=== PATIENT | female | born 1955 | race Caucasian/White ===

== ENCOUNTER 2016-10-24 12:52 | Inpatient (IN) | payer OTHER ==
[2016-10-24 15:17] LABS: BASOPHIL 0.3 % (0-2.0); EOSINOPHIL 0.1 % (0-4.5); MCH 30.4 pg (25.7-33.7); MCHC 33.6 g/dl (32.0-36.0); MEAN CELL VOLUME 90.3 fl (80-96); MEAN PLT VOLUME 7.4 fl (7.5-11.1); NEUTROPHILS 79.9 % (42.8-82.8); PLATELET COUNT 303 K/MM3 (134-434); RDW 12.7 % (11.6-15.6); WHITE BLOOD COUNT 10.9 K/mm3 (4.0-10.0)
[2016-10-24 15:18] LABS: URINE APPEARANCE CLEAR; URINE BILIRUBIN NEGATIVE (NEGATIVE); URINE BLOOD NEGATIVE (NEGATIVE); URINE COLOR YELLOW; URINE GLUCOSE (UA) NEGATIVE (NEGATIVE); URINE KETONE NEGATIVE (NEGATIVE); URINE LEUK ESTERASE NEGATIVE (NEGATIVE); URINE NITRITE NEGATIVE (NEGATIVE); URINE PROTEIN NEGATIVE (NEGATIVE); URINE UROBILINOGEN NEGATIVE mg/dL (0.2-1.0)
[2016-10-24 15:29] LABS: INR 1.11 (0.82-1.09); PROTHROMBIN TIME (PATIENT) 12.2 SEC (9.98-11.88)
[2016-10-24 15:32] LABS: ACTIVATED PTT 36.4 SECONDS (26.9-34.4)
[2016-10-24 15:41] LABS: ALBUMIN 3.8 g/dl (3.4-5.0); ANION GAP 6 (8-16); BILIRUBIN,TOTAL 0.3 mg/dL (0.2-1.0); CALCIUM 9.1 mg/dL (8.5-10.1); CO2 30 mmol/L (21-32); CREATININE 0.4 mg/dL (0.55-1.02); GLUCOSE,RANDOM 91 mg/dL (74-106); SGOT/AST 13 U/L (15-37); SGPT/ALT 23 U/L (12-78); TOT PROT 7.3 g/dl (6.4-8.2)
[2016-10-24 15:42] LABS: ALK PHOS 64 U/L (45-117)
--- NOTE | 2016-10-24 16:55 | PDOC ---
History of Present Illness <Carlton Teixeira - Last Filed: 10/24/16 21:19> - General History Source: Patient Exam Limitations: No Limitations - History of Present Illness Initial Comments: 10/24/16 17:24 Chief complaint: Abdominal pain generalized History of present illness: Patient is a 61-year-old female with a history of GERD, hypertension, diabetes, small bowel obstruction approximately 15 years ago. Patient reports that she was awaken this morning around 5 AM with mid abdominal discomfort that quickly started to radiate to entire abdomen with a cramping like sensation. Patient denies any fever, or chills. Patient reports that her last bowel movement was today to moderate sized brown formed with no rectal bleeding or blood noted on stool. Patient denies any urinary symptoms. Patient denies any back pain. Patient denies any difficulty breathing. Patient reports that her appetite has been very good. 10/24/16 17:28 Medical h/o gerd, htn, diabetes, small bowel obstruction 15 years ago surgical h/o: thyroidectomy, cholecystectomy, appendectomy, hystertomy, oophorectomy, b/l hip replacement GI: Dr Yobany mckay seen 5 years ago PCP: Dr. Adrianna Nuñez 10/24/16 19:18 Timing/Duration: getting worse Severity: severe (diffuse ) Associated Symptoms: reports: nausea/vomiting (nausea slight ). denies: chest pain, cough, diaphoresis, fever/chills, headaches, malaise, seizure, shortness of breath, syncope, weakness <Marian Cheng - Last Filed: 10/25/16 12:08> - General Chief Complaint: Pain Stated Complaint: ABD PAIN Time Seen by Provider: 10/24/16 16:51 Past History <Carlton Teixeira - Last Filed: 10/24/16 21:19> - Past Medical History Diabetes: Yes GI Disorders: Yes (gerd) HTN: Yes Suicide Attempt (Hx): No Thyroid Disease: Yes - Surgical History Abdominal Surgery: Yes Appendectomy: Yes Cholecystectomy: Yes - Psycho/Social/Smoking Cessation Hx Anxiety: No Suicidal Ideation: No Smoking Status: No Smoking History: Never smoked Number of Cigarettes Smoked Daily: 0 Hx Alcohol Use: Yes (SOCIAL) Drug/Substance Use Hx: No Substance Use Type: None <Marian Cheng - Last Filed: 10/25/16 12:08> - Past Medical History Allergies/Adverse Reactions: Allergies Allergy/AdvReac Type Severity Reaction Status Date / Time No Known Allergies Allergy Verified 10/24/16 12:58 Home Medications: Ambulatory Orders Levothyroxine [Synthroid -] 100 mcg PO DAILY 10/24/16 Tramadol HCl 50 mg PO DAILY PRN 10/24/16 Valsartan [Diovan] 80 mg PO DAILY 10/24/16 Review of Systems - Review of Systems Able to Perform ROS?: Yes Constitutional: No: Symptoms Reported HEENTM: No: Symptoms Reported Respiratory: No: Symptoms reported Cardiac (ROS): No: Symptoms Reported ABD/GI: Yes: Nausea (slight today ), Abdominal cramping (diffuse), Other (mid epigastric discomfort starting at 5 am started to radiate diffusely with cramping generalized abdominal pain). No: Abdominal Distended, Abd. Pain w/ defecation, Blood Streaked Bowels, Constipated, Diarrhea, Difficulty Swallowing , Poor Appetite, Poor Fluid Intake, Rectal Bleeding, Vomiting, Indigestion, Tarry Stools : No: Symptoms Reported Musculoskeletal: No: Symptoms Reported Integumentary: No: Symptoms Reported Neurological: No: Symptoms reported <Marian Cheng - Last Filed: 10/25/16 12:08> *Physical Exam - Vital Signs Last Vital Signs Temp Pulse Resp BP Pulse Ox 97.3 F L 57 L 16 153/79 99 10/24/16 17:59 10/24/16 17:59 10/24/16 17:59 10/24/16 17:59 10/24/16 17:59 <Carlton Teixeira - Last Filed: 10/24/16 21:19> - Vital Signs Last Vital Signs Temp Pulse Resp BP Pulse Ox 98.8 F 75 20 152/98 100 10/24/16 12:55 10/24/16 12:55 10/24/16 12:55 10/24/16 12:55 10/24/16 12:55 - Physical Exam General Appearance: Yes: Appropriately Dressed Respiratory/Chest: positive: Lungs Clear, Normal Breath Sounds. negative: Chest Tender, Respiratory Distress Cardiovascular: positive: Regular Rhythm, Regular Rate, S1, S2 Gastrointestinal/Abdominal: positive: Normal Bowel Sounds, Tender (diffusely greater left lower quadrant), Soft, Tenderness. negative: Organomegaly, Increased Bowel Sounds, Decreased BS, Distended, Guarding, Rebound, Hepatomegaly , Spleenomegaly Musculoskeletal: negative: CVA Tenderness, CVA Tenderness (R), CVA Tenderness (L ) Integumentary: positive: Normal Color Neurologic: positive: Alert, Normal Response, Finger to Nose <Marian Cheng - Last Filed: 10/25/16 12:08> ED Treatment Course - LABORATORY CBC & Chemistry Diagram: 10/24/16 15:00 10/24/16 15:00 - ADDITIONAL ORDERS Additional order review: Laboratory Results 10/24/16 10/24/16 10/24/16 17:38 15:00 15:00 INR PTT (Actin FS) Sodium 139 Potassium 4.3 Chloride 103 Carbon Dioxide 30 Anion Gap 6 L BUN 11 D Creatinine 0.4 L Creat Clearance w eGFR > 60 Random Glucose 91 Calcium 9.1 Total Bilirubin 0.3 D AST 13 L ALT 23 Alkaline Phosphatase 64 Creatine Kinase 143 Troponin I < 0.02 Total Protein 7.3 Albumin 3.8 Urine Color Urine Appearance Urine pH Ur Specific [place] Urine Protein Urine Glucose (UA) Urine Ketones Urine Blood Urine Nitrite Urine Bilirubin Urine Urobilinogen Ur Leukocyte Esterase Blood Type B POSITIVE Antibody Screen Negative 10/24/16 10/24/16 15:00 15:00 INR 1.11 PTT (Actin FS) 36.4 H Sodium Potassium Chloride Carbon Dioxide Anion Gap BUN Creatinine Creat Clearance w eGFR Random Glucose Calcium Total Bilirubin AST ALT Alkaline Phosphatase Creatine Kinase Troponin I Total Protein Albumin Urine Color Yellow Urine Appearance Clear Urine pH 5.0 D Ur Specific [place] 1.020 Urine Protein Negative Urine Glucose (UA) Negative Urine Ketones Negative Urine Blood Negative Urine Nitrite Negative Urine Bilirubin Negative Urine Urobilinogen Negative Ur Leukocyte Esterase Negative Blood Type Antibody Screen 10/24/16 15:00 RBC 3.91 MCV 90.3 MCHC 33.6 RDW 12.7 MPV 7.4 L Neutrophils % 79.9 D Lymphocytes % 16.3 D Monocytes % 3.4 L Eosinophils % 0.1 D Basophils % 0.3 - Medications Given in the ED: ED Medications Discontinued Medications Generic Name Dose Route Start Last Admin Trade Name Freq PRN Reason Stop Dose Admin Morphine Sulfate 2 mg 10/24/16 17:13 10/24/16 17:24 Morphine Injection - IVPUSH 10/24/16 17:14 2 mg ONCE ONE Administration <Carlton Teixeira - Last Filed: 10/24/16 21:19> - LABORATORY CBC & Chemistry Diagram: 10/25/16 06:00 10/25/16 06:00 - ADDITIONAL ORDERS Additional order review: Laboratory Results 10/24/16 10/24/16 10/24/16 15:00 15:00 15:00 INR 1.11 PTT (Actin FS) 36.4 H Sodium 139 Potassium 4.3 Chloride 103 Carbon Dioxide 30 Anion Gap 6 L BUN 11 D Creatinine 0.4 L Creat Clearance w eGFR > 60 Random Glucose 91 Calcium 9.1 Total Bilirubin 0.3 D AST 13 L ALT 23 Alkaline Phosphatase 64 Total Protein 7.3 Albumin 3.8 Urine Color Yellow Urine Appearance Clear Urine pH 5.0 D Urine Protein Negative Urine Glucose (UA) Negative Urine Ketones Negative Urine Blood Negative Urine Nitrite Negative Urine Bilirubin Negative Urine Urobilinogen Negative Ur Leukocyte Esterase Negative 10/24/16 15:00 RBC 3.91 MCV 90.3 MCHC 33.6 RDW 12.7 MPV 7.4 L Neutrophils % 79.9 D Lymphocytes % 16.3 D Monocytes % 3.4 L Eosinophils % 0.1 D Basophils % 0.3 <Marian Cheng - Last Filed: 10/25/16 12:08> Medical Decision Making - Medical Decision Making 10/24/16 17:28 Patient is a 61-year-old female with a history of GERD, hypertension, diabetes , small bowel obstruction approximately 15 years ago. Patient reports that she was awaken this morning around 5 AM with mid abdominal discomfort that quickly started to radiate to entire abdomen with a cramping like sensation. Patient denies any fever, or chills. Patient reports that her last bowel movement was today to moderate sized brown formed with no rectal bleeding or blood noted on stool. Patient denies any urinary symptoms. Patient denies any back pain. Patient denies any difficulty breathing. Patient reports that her appetite has been very good. Differential diagnosis will be r/o small bowel obstruction, diverticulitis Diffuse abdominal pain r/o SMALL BOWEL OBSTRUCTION/ DIVERTICULITIS PLAN: cbc with diff cmp u/a Pt/INR cardiac profile EKG reviewed by Dr. Chin CT abdomen with po and IV contrast morphine 2m IV push IV insert 10/24/16 17:29 10/24/16 17:33 10/24/16 17:33 Laboratory Tests 10/24/16 10/24/16 10/24/16 15:00 15:00 15:00 WBC 10.9 H D RBC 3.91 Hgb 11.9 Hct 35.3 MCV 90.3 MCH 30.4 MCHC 33.6 RDW 12.7 Plt Count 303 MPV 7.4 L Neutrophils % 79.9 D Lymphocytes % 16.3 D Monocytes % 3.4 L Eosinophils % 0.1 D Basophils % 0.3 INR 1.11 PTT (Actin FS) 36.4 H Sodium Potassium Chloride Carbon Dioxide Anion Gap BUN Creatinine Creat Clearance w eGFR Random Glucose Calcium Total Bilirubin ALT Alkaline Phosphatase Total Protein Albumin Urine Color Yellow Urine Appearance Clear Urine pH 5.0 D Urine Protein Negative Urine Glucose (UA) Negative Urine Ketones Negative Urine Blood Negative Urine Nitrite Negative Urine Bilirubin Negative Urine Urobilinogen Negative Ur Leukocyte Esterase Negative 10/24/16 15:00 WBC RBC Hgb Hct MCV MCH MCHC RDW Plt Count MPV Neutrophils % Lymphocytes % Monocytes % Eosinophils % Basophils % INR PTT (Actin FS) Sodium 139 Potassium 4.3 Chloride 103 Carbon Dioxide 30 Anion Gap 6 L BUN 11 D Creatinine 0.4 L Creat Clearance w eGFR > 60 Random Glucose 91 Calcium 9.1 Total Bilirubin 0.3 D ALT 23 Alkaline Phosphatase 64 Total Protein 7.3 Albumin 3.8 Urine Color Urine Appearance Urine pH Urine Protein Urine Glucose (UA) Urine Ketones Urine Blood Urine Nitrite Urine Bilirubin Urine Urobilinogen Ur Leukocyte Esterase 10/24/16 19:00 Laboratory Tests 10/24/16 17:38 Creatine Kinase 143 Troponin I < 0.02 10/24/16 19:20 pt. signed out to SPENSER Teixeira CT of abdomen pending 10/25/16 12:08 <Marian Cheng - Last Filed: 10/25/16 12:08> *DC/Admit/Observation/Transfer - Discharge Dispostion Admit: Yes <Carlton Teixeira - Last Filed: 10/24/16 21:19> <Marian Cheng - Last Filed: 10/25/16 12:08> Diagnosis at time of Disposition: SBO (small bowel obstruction) - Discharge Dispostion Condition at time of disposition: Fair
[2016-10-24] MEDS ORDERED: morphine CARPU-JECT 2 MG/1 ML DISP.SYRIN IVPUSH ONE (17:13)
[2016-10-24] MEDS ORDERED: morphine CARPU-JECT 2 MG/1 ML DISP.SYRIN ONE (17:19)
--- NOTE | 2016-10-24 17:53 | PDOC ---
*Physical Exam - Vital Signs Last Vital Signs Temp Pulse Resp BP Pulse Ox 98.8 F 75 20 152/98 100 10/24/16 12:55 10/24/16 12:55 10/24/16 12:55 10/24/16 12:55 10/24/16 12:55 ED Treatment Course - LABORATORY CBC & Chemistry Diagram: 10/25/16 06:00 10/25/16 06:00 - ADDITIONAL ORDERS Additional order review: Laboratory Results 10/24/16 10/24/16 10/24/16 15:00 15:00 15:00 INR PTT (Actin FS) Sodium 139 Potassium 4.3 Chloride 103 Carbon Dioxide 30 Anion Gap 6 L BUN 11 D Creatinine 0.4 L Creat Clearance w eGFR > 60 Random Glucose 91 Calcium 9.1 Total Bilirubin 0.3 D AST 13 L ALT 23 Alkaline Phosphatase 64 Total Protein 7.3 Albumin 3.8 Urine Color Yellow Urine Appearance Clear Urine pH 5.0 D Ur Specific [place] 1.020 Urine Protein Negative Urine Glucose (UA) Negative Urine Ketones Negative Urine Blood Negative Urine Nitrite Negative Urine Bilirubin Negative Urine Urobilinogen Negative Ur Leukocyte Esterase Negative Blood Type B POSITIVE Antibody Screen Negative 10/24/16 15:00 INR 1.11 PTT (Actin FS) 36.4 H Sodium Potassium Chloride Carbon Dioxide Anion Gap BUN Creatinine Creat Clearance w eGFR Random Glucose Calcium Total Bilirubin AST ALT Alkaline Phosphatase Total Protein Albumin Urine Color Urine Appearance Urine pH Ur Specific [place] Urine Protein Urine Glucose (UA) Urine Ketones Urine Blood Urine Nitrite Urine Bilirubin Urine Urobilinogen Ur Leukocyte Esterase Blood Type Antibody Screen 10/24/16 15:00 RBC 3.91 MCV 90.3 MCHC 33.6 RDW 12.7 MPV 7.4 L Neutrophils % 79.9 D Lymphocytes % 16.3 D Monocytes % 3.4 L Eosinophils % 0.1 D Basophils % 0.3 - Medications Given in the ED: ED Medications Discontinued Medications Generic Name Dose Route Start Last Admin Trade Name Freq PRN Reason Stop Dose Admin Morphine Sulfate 2 mg 10/24/16 17:13 10/24/16 17:24 Morphine Injection - IVPUSH 10/24/16 17:14 2 mg ONCE ONE Administration Medical Decision Making - Medical Decision Making 10/24/16 19:49 agree with SURVEILLANCE CAMERA TECHNICIAN's evaluation, assessment, and plan. 61 F with chronic abdominal pain, SBOs, presenting with acute on chronic abdominal pain. - CTAP - PO trial - Likely dispo home if CT negative Pt signed out to night team, pending CTAP and PO trial *DC/Admit/Observation/Transfer Diagnosis at time of Disposition: SBO (small bowel obstruction) - Discharge Dispostion Condition at time of disposition: Fair
[2016-10-24 18:02] LABS: CPK 143 IU/L (26-192); TROPONIN I < 0.02 ng/ml (0.00-0.05)
[2016-10-24] MEDS ORDERED: SODIUM CHLORIDE 1,000 ML IV SCH (21:30)
[2016-10-24] MEDS ORDERED: ONDANSETRON 4 MG/2 ML VIAL IVPUSH PRN (23:28)
[2016-10-24] MEDS ORDERED: METOPROLOL TARTRATE 5 MG/5 ML VIAL IVPUSH PRN (23:30)
[2016-10-24 23:48] VITALS: BMI 27.1
[2016-10-25] MEDS: SODIUM CHLORIDE 1,000 ML IV SCH (00:08)
[2016-10-25] MEDS: HYDROmorphone HCL CARPU-JECT 1 MG/1 ML DISP.SYRIN IVPUSH PRN ×2 (00:08→06:08)
--- NOTE | 2016-10-25 00:13 | HP ---
CHIEF COMPLAINT: Abdominal discomfort PCP:Dr. Adrianna Nuñez HISTORY OF PRESENT ILLNESS: 61 y.o. F with pmh of GERD, HTN, SBO 15 years prior presenting with abdominal discomfort. Patient woke up at 5 am with epigastric pain. She drank black coffee and then around 9 am, she felt her pain radiate across entire abdomen. Patient states the pain is crampy and constant. Patient felt it was the same as when she had a SBO 15 years ago. Her las BM was this morning x2. Her last meal was last night for dinner. She has a good appetite. She endorses chills, mild nausea. Denies fever, vomiting, diarrhea, constipation, changes in her bowels or bladder ER course was notable for: (1) WBC - 10.9, UA negative (2) Abd/pelvis CT- dilated loops of small bowel-- SBO (3) NG tube placement Recent Travel: denies PAST MEDICAL HISTORY: GERD, HTN, SBO 15 years prior PAST SURGICAL HISTORY: thyroidectomy, appendectomy, cholecystectomy, total hysterectomy with oopherectomy, and b/l hip replacements Social History: Smoking: denies Alcohol: occasional Drugs: denies Family History: HTN in mother Allergies No Known Allergies Allergy (Verified 10/24/16 12:58) HOME MEDICATIONS: Home Medications Medication Instructions Recorded Levothyroxine [Synthroid -] 100 mcg PO DAILY 10/24/16 Tramadol HCl 50 mg PO DAILY PRN 10/24/16 Valsartan [Diovan] 80 mg PO DAILY 10/24/16 REVIEW OF SYSTEMS CONSTITUTIONAL: Absent: fever, chills, diaphoresis, generalized weakness, malaise, loss of appetite, weight change HEENT: Absent: rhinorrhea, nasal congestion, throat pain, throat swelling, difficulty swallowing, mouth swelling, ear pain, eye pain, visual changes CARDIOVASCULAR: Absent: chest pain, syncope, palpitations, irregular heart rate, lightheadedness , peripheral edema RESPIRATORY: Absent: cough, shortness of breath, dyspnea with exertion, orthopnea, wheezing, stridor, hemoptysis GASTROINTESTINAL: Absent: abdominal pain, abdominal distension, nausea, vomiting, diarrhea, constipation, melena, hematochezia GENITOURINARY: Absent: dysuria, frequency, urgency, hesitancy, hematuria, flank pain, genital pain MUSCULOSKELETAL: Absent: myalgia, arthralgia, joint swelling, back pain, neck pain SKIN: Absent: rash, itching, pallor HEMATOLOGIC/IMMUNOLOGIC: Absent: easy bleeding, easy bruising, lymphadenopathy, frequent infections ENDOCRINE: Absent: unexplained weight gain, unexplained weight loss, heat intolerance, cold intolerance NEUROLOGIC: Absent: headache, focal weakness or paresthesias, dizziness, unsteady gait, seizure, mental status changes, bladder or bowel incontinence PSYCHIATRIC: Absent: anxiety, depression, suicidal or homicidal ideation, hallucinations. PHYSICAL EXAMINATION Vital Signs - 24 hr 10/24/16 23:14 Temperature 98.3 F Pulse Rate 55 L Respiratory 20 Rate Blood Pressure 151/74 O2 Sat by Pulse 96 Oximetry (%) GENERAL: Awake, alert, and fully oriented, in no acute distress. HEAD: Normal with no signs of trauma. EYES: Pupils equal, round and reactive to light, extraocular movements intact, sclera anicteric, conjunctiva clear. No lid lag. EARS, NOSE, THROAT: Ears normal, nares patent, oropharynx clear without exudates. Moist mucous membranes. NECK: Normal range of motion, supple without lymphadenopathy, JVD, or masses. LUNGS: Breath sounds equal, clear to auscultation bilaterally. No wheezes, and no crackles. No accessory muscle use. HEART: Regular rate and rhythm, normal S1 and S2 without murmur, rub or gallop. ABDOMEN: Soft, Diffuse tenderness to palpation and percussion, not distended, normoactive bowel sounds, no guarding, no rebound, no masses. No hepatomegaly or splenomegaly. MUSCULOSKELETAL: Normal range of motion at all joints. No bony deformities or tenderness. No CVA tenderness. UPPER EXTREMITIES: 2+ pulses, warm, well-perfused. No cyanosis. No clubbing. No peripheral edema. LOWER EXTREMITIES: 2+ pulses, warm, well-perfused. No calf tenderness. No peripheral edema. NEUROLOGICAL: Cranial nerves II-XII intact. Normal speech. Normal gait. PSYCHIATRIC: Cooperative. Good eye contact. Appropriate mood and affect. SKIN: Warm, dry, normal turgor, no rashes or lesions noted, normal capillary refill. Laboratory Results - last 24 hr 10/24/16 22:50 Lactic Acid 0.6 ASSESSMENT/PLAN: 61 year old F with pmh of GERD, HTN, SBO 15 yrs ago presented with diffuse abdominal pain admitted for SBO. #SBO -IVF @ 125 cc/hr NS -NPO -0.5 mg dilaudid Q6 hr PRN for pain control -Zofran 4 mg Q6 hr PRN -GI consulted, Dr. Haywood -NG tube in place to low intermittent suction #HTN -Lopressor 5 mg IVP q6h prn, maintain sbp <140 -Hold home medications #FEN/GI -IVF @ 125 cc/hr NS -wnl -NPO #ppx -DVT- SCD's Visit type - Emergency Visit Emergency Visit: Yes ED Registration Date: 10/24/16 Care time: The patient presented to the Emergency Department on the above date and was hospitalized for further evaluation of their emergent condition. - New Patient This patient is new to me today: Yes Date on this admission: 10/28/16 - Critical Care Critical Care patient: No
[2016-10-25 07:16] LABS: BASOPHIL 0.3 % (0-2.0); EOSINOPHIL 0.9 % (0-4.5); MCH 30.4 pg (25.7-33.7); MCHC 33.6 g/dl (32.0-36.0); MEAN CELL VOLUME 90.3 fl (80-96); MEAN PLT VOLUME 6.9 fl (7.5-11.1); PLATELET COUNT 283 K/MM3 (134-434); RDW 12.9 % (11.6-15.6); WHITE BLOOD COUNT 7.4 K/mm3 (4.0-10.0)
[2016-10-25 07:46] LABS: ALBUMIN 3.2 g/dl (3.4-5.0); ANION GAP 6 (8-16); BILIRUBIN,TOTAL 0.6 mg/dL (0.2-1.0); CALCIUM 8.2 mg/dL (8.5-10.1); CO2 30 mmol/L (21-32); CREATININE 0.4 mg/dL (0.55-1.02); GLUCOSE,RANDOM 91 mg/dL (74-106); SGOT/AST 13 U/L (15-37); SGPT/ALT 23 U/L (12-78); TOT PROT 6.4 g/dl (6.4-8.2)
[2016-10-25 07:47] LABS: ALK PHOS 69 U/L (45-117)
--- NOTE | 2016-10-25 08:08 | PN ---
Teaching Attending Note ATTENDING PHYSICIAN STATEMENT I saw and evaluated the patient. I reviewed the resident's note and discussed the case with the resident. I agree with the resident's findings and plan as documented. SUBJECTIVE: OBJECTIVE: ASSESSMENT AND PLAN:
[2016-10-25] MEDS ORDERED: METOPROLOL TARTRATE 5 MG/5 ML VIAL IVPB PRN (11:13)
--- NOTE | 2016-10-25 11:13 | EKG ---
Test Reason : Blood Pressure : / mmHG Vent. Rate : 061 BPM Atrial Rate : 061 BPM P-R Int : 192 ms QRS Dur : 098 ms QT Int : 424 ms P-R-T Axes : -06 -07 015 degrees QTc Int : 426 ms NORMAL SINUS RHYTHM SEPTAL INFARCT , AGE UNDETERMINED ABNORMAL ECG WHEN COMPARED WITH ECG OF 14-JUL-2011 09:04, SEPTAL INFARCT IS NOW PRESENT Confirmed by KATIANA MARCUM, MARIAMA ([id number]) on 10/25/2016 11:13:23 AM Referred By: Confirmed By:MARIAMA SAAB MD
--- NOTE | 2016-10-25 11:52 | PN ---
Progress Note, Physician Chief Complaint: Ms Ball says she is feeling a little bit better. Says her abdominal pain is improved but still present. No cp or sob. +flatus this am. - Current Medication List Current Medications: Active Medications Hydromorphone HCl (Dilaudid Injection -) 0.5 mg IVPUSH Q6H PRN PRN Reason: PAIN Last Admin: 10/25/16 06:08 Dose: 0.5 mg Sodium Chloride (Normal Saline -) 1,000 mls @ 125 mls/hr IV ASDIR ELLEN Last Admin: 10/25/16 00:08 Dose: 125 mls/hr Metoprolol Tartrate (Lopressor Injection -) 5 mg IVPB Q6H PRN PRN Reason: HYPERTENSION Ondansetron HCl (Zofran Injection) 4 mg IVPUSH Q6H PRN PRN Reason: NAUSEA AND/OR VOMITING - Objective Vital Signs: Vital Signs Temperature 37.1 C 10/25/16 09:58 Pulse Rate 62 10/25/16 09:58 Respiratory Rate 20 10/25/16 09:58 Blood Pressure 148/71 10/25/16 09:58 O2 Sat by Pulse Oximetry (%) 96 10/24/16 23:14 Constitutional: Yes: Well Nourished, No Distress, Calm Cardiovascular: Yes: Regular Rate and Rhythm. No: Gallop, Murmur, Rub Respiratory: Yes: Regular, CTA Bilaterally. No: Rales, Rhonchi, Wheezes Gastrointestinal: Yes: Soft, Hypoactive Bowel Sounds, Tenderness. No: Normal Bowel Sounds, Distention Extremities: Yes: WNL Edema: No Labs: CBC, BMP 10/25/16 06:00 10/25/16 06:00 INR, PTT INR 1.11 (0.82-1.09) 10/24/16 15:00 Problem List - Problems (1) SBO (small bowel obstruction) Assessment/Plan: -patient slightly improved -continue NPO -continue NGT to LIWS -case d/w surgery, no need for surgical intervention at this time -GI consulted Code(s): K56.69 - OTHER INTESTINAL OBSTRUCTION (2) Hypertension Assessment/Plan: -prn IV metoprolol while npo -restart home regimen when placed on diet Code(s): I10 - ESSENTIAL (PRIMARY) HYPERTENSION (3) Hypothyroid Assessment/Plan: -ok to hold synthroid for short time secondary to long half life -if long period where needs to be npo, start IV levothyroxine Code(s): E03.9 - HYPOTHYROIDISM, UNSPECIFIED
--- NOTE | 2016-10-25 11:57 | CONSULT ---
- Consultation REQUESTING PROVIDER: CONSULT REQUEST: We have been asked to surgically evaluate this patient for abdominal pain PCP:Akin Wayne MD HISTORY OF PRESENT ILLNESS: CTSP for evaluation and management of SBO; patient has had # abdominal surgeries in the past; she came in b/o crampy abdominal pain ; she states she is passing flatus. PMHx: hypothyroid; hypertension PSHx: open helen; appendectomy; sleeve gastrectomy; JENIFER; incisional hernia repair; C-S; b/l THR and previous h/o SBO Home Medications Medication Instructions Recorded Levothyroxine [Synthroid -] 100 mcg PO DAILY 10/24/16 Tramadol HCl 50 mg PO DAILY PRN 10/24/16 Valsartan [Diovan] 80 mg PO DAILY 10/24/16 Allergies Allergy/AdvReac Type Severity Reaction Status Date / Time No Known Allergies Allergy Verified 10/24/16 12:58 PHYSICAL EXAM: GENERAL: Awake, alert, and fully oriented, in no acute distress. HEAD: Normal with no signs of trauma. EYES: PERRL, sclera anicteric, conjunctiva clear.NECK: Normal ROM, supple without lymphadenopathy, JVD, or masses. ABDOMEN: Soft, nontender, not distended, hypooactive bowel sounds, no guarding, no rebound, no masses. No organomegaly. No hernias; healed surgical scars MUSCULOSKELETAL: Normal ROM at all joints. No bony deformities or tenderness. No CVA tenderness. UPPER EXTREMITIES: 2+ pulses, warm, well-perfused. No cyanosis. Cap refill <2 seconds. No peripheral edema. LOWER EXTREMITIES: 2+ pulses, warm, well-perfused. No calf tenderness. No peripheral edema. NEUROLOGICAL: Normal speech, gait not observed. PSYCH: Cooperative. Good eye contact. Appropriate mood and affect. SKIN: Warm, dry, normal turgor, no rashes or lesions noted. Vital Signs Temperature 98.7 F 10/25/16 09:58 Pulse Rate 62 10/25/16 09:58 Respiratory Rate 20 10/25/16 09:58 Blood Pressure 148/71 10/25/16 09:58 O2 Sat by Pulse Oximetry (%) 96 10/24/16 23:14 Lab Results WBC 7.4 K/mm3 (4.0-10.0) D 10/25/16 06:00 RBC 3.73 M/mm3 (3.60-5.2) 10/25/16 06:00 Hgb 11.3 GM/dL (10.7-15.3) 10/25/16 06:00 Hct 33.7 % (32.4-45.2) 10/25/16 06:00 MCV 90.3 fl (80-96) 10/25/16 06:00 MCHC 33.6 g/dl (32.0-36.0) 10/25/16 06:00 RDW 12.9 % (11.6-15.6) 10/25/16 06:00 Plt Count 283 K/MM3 (134-434) 10/25/16 06:00 Sodium 142 mmol/L (136-145) 10/25/16 06:00 Potassium 3.7 mmol/L (3.5-5.1) 10/25/16 06:00 Chloride 106 mmol/L (98-107) 10/25/16 06:00 Carbon Dioxide 30 mmol/L (21-32) 10/25/16 06:00 Anion Gap 6 (8-16) L 10/25/16 06:00 BUN 7 mg/dL (7-18) D 10/25/16 06:00 Creatinine 0.4 mg/dL (0.55-1.02) L 10/25/16 06:00 Random Glucose 91 mg/dL (74-106) 10/25/16 06:00 Calcium 8.2 mg/dL (8.5-10.1) L 10/25/16 06:00 Blood Type B POSITIVE 10/24/16 15:00 Antibody Screen Negative 10/24/16 15:00 INR 1.11 (0.82-1.09) 10/24/16 15:00 CT a/p reviewed IMP: partial vs. early SBO PLAN: NPO/NGT/IVF; serial abdominal exams; f/u AXR ordered; plan of care d/w patient; surgery is possibly necessary if no resolution of sbo w/ conservative tx.; a/a/u by the patient. Gokul Rodriguez MD FACS Visit type - Case Type Case Type: ED Admission - Emergency Emergency Visit: Yes ED Registration Date: 10/24/16 Care time: The patient presented to the Emergency Department on the above date and was hospitalized for further evaluation of their emergent condition. - New patient This patient is new to me today: Yes Date on this admission: 10/25/16 - Critical Care Critical Care patient: No
[2016-10-25] MEDS ORDERED: ONDANSETRON 4 MG/2 ML VIAL IVPB PRN (20:21)
[2016-10-26] MEDS: SODIUM CHLORIDE 1,000 ML IV SCH ×3 (03:34→20:03)
[2016-10-26] MEDS ORDERED: PT OWN MED DRAWER 7, Y5N ONE (06:48)
[2016-10-26 07:26] LABS: BASOPHIL 0.3 % (0-2.0); EOSINOPHIL 0.7 % (0-4.5); MCH 30.2 pg (25.7-33.7); MCHC 33.4 g/dl (32.0-36.0); MEAN CELL VOLUME 90.6 fl (80-96); MEAN PLT VOLUME 7.3 fl (7.5-11.1); NEUTROPHILS 71.8 % (42.8-82.8); PLATELET COUNT 263 K/MM3 (134-434); RDW 12.8 % (11.6-15.6); WHITE BLOOD COUNT 8.1 K/mm3 (4.0-10.0)
[2016-10-26 07:56] LABS: ANION GAP 12 (8-16); CALCIUM 8.2 mg/dL (8.5-10.1); CO2 24 mmol/L (21-32); CREATININE 0.3 mg/dL (0.55-1.02); GLUCOSE,RANDOM 60 mg/dL (74-106); MAGNESIUM 1.8 mg/dL (1.8-2.4); PHOSPHOROUS 3.2 mg/dL (2.5-4.9)
--- NOTE | 2016-10-26 10:52 | PN ---
Progress Note (short form) - Note Progress Note: Attending Surgeon No c/o; passing flatus and having bowel movements VSS AF abdomen-soft; flat and non tender; no tympany; o/w negative AXR yesterday-contrast in colon IMP: resolvong partial SBO PLAN: NGT removed; trial of clear liquids and advance diet as tolerated. Gokul Rodriguez MD FACS
--- NOTE | 2016-10-26 15:34 | PN ---
Progress Note, Physician Chief Complaint: Ms Ball says she is feeling much better. NGT removed and patient tolerating clear liquid diet. +flatus and +bm. No cp, sob, n/v. - Current Medication List Current Medications: Active Medications Hydromorphone HCl (Dilaudid Injection -) 0.5 mg IVPUSH Q6H PRN PRN Reason: PAIN Last Admin: 10/25/16 06:08 Dose: 0.5 mg Sodium Chloride (Normal Saline -) 1,000 mls @ 125 mls/hr IV ASDIR ELLEN Last Admin: 10/26/16 12:10 Dose: 125 mls/hr Metoprolol Tartrate (Lopressor Injection -) 5 mg IVPB Q6H PRN PRN Reason: HYPERTENSION Ondansetron HCl (Zofran Injection) 4 mg IVPB Q6H PRN PRN Reason: NAUSEA AND/OR VOMITING - Objective Vital Signs: Vital Signs Temperature 37.3 C 10/26/16 13:56 Pulse Rate 61 10/26/16 13:56 Respiratory Rate 18 10/26/16 13:56 Blood Pressure 135/62 10/26/16 13:56 O2 Sat by Pulse Oximetry (%) 98 10/26/16 09:00 Constitutional: Yes: Well Nourished, No Distress, Calm Cardiovascular: Yes: Regular Rate and Rhythm. No: Gallop, Murmur, Rub Respiratory: Yes: Regular, CTA Bilaterally. No: Rales, Rhonchi, Wheezes Gastrointestinal: Yes: Normal Bowel Sounds, Soft. No: Distention, Tenderness Extremities: Yes: WNL Edema: No Labs: CBC, BMP 10/26/16 06:00 10/26/16 06:00 INR, PTT INR 1.11 (0.82-1.09) 10/24/16 15:00 Problem List - Problems (1) SBO (small bowel obstruction) Code(s): K56.69 - OTHER INTESTINAL OBSTRUCTION (2) Hypertension Code(s): I10 - ESSENTIAL (PRIMARY) HYPERTENSION (3) Hypothyroid Code(s): E03.9 - HYPOTHYROIDISM, UNSPECIFIED Assessment/Plan (1) SBO (small bowel obstruction) Assessment/Plan: -much improved -NGT removed -tolerating clears -advance diet per surgery Code(s): K56.69 - OTHER INTESTINAL OBSTRUCTION (2) Hypertension Assessment/Plan: -prn IV metoprolol while npo -restart home regimen when placed on diet Code(s): I10 - ESSENTIAL (PRIMARY) HYPERTENSION (3) Hypothyroid Assessment/Plan: -ok to hold synthroid for short time secondary to long half life -if long period where needs to be npo, start IV levothyroxine Code(s): E03.9 - HYPOTHYROIDISM, UNSPECIFIED
--- NOTE | 2016-10-26 17:06 | CON.GI ---
Consult Consult Specialty:: GI Referred by:: Dr Wayne Reason for Consultation:: SBO - History of Present Illness History of Present Illness: 61-year-old female with a history of GERD, hypertension, diabetes, small bowel obstruction approximately 15 years ago s/p gastric sleeve surgery 5 years ago now with resolving SBO. On admission, she was distended and had abdominal pain. Radiology showed SBO. At this time, problem has resolved, NGT is out, and she is tolerating clear liquids. - History Source History Provided By: Patient, Medical Record Limitations to Obtaining History: No Limitations - Past Medical History ...: No - Alcohol/Substance Use Hx Alcohol Use: Yes (SOCIAL) - Smoking History Smoking history: Never smoked Have you smoked in the past 12 months: No Aproximately how many cigarettes per day: 0 Home Medications - Allergies Allergies/Adverse Reactions: Allergies Allergy/AdvReac Type Severity Reaction Status Date / Time No Known Allergies Allergy Verified 10/24/16 12:58 - Home Medications Home Medications: Ambulatory Orders Levothyroxine [Synthroid -] 100 mcg PO DAILY 10/24/16 Tramadol HCl 50 mg PO DAILY PRN 10/24/16 Valsartan [Diovan] 80 mg PO DAILY 10/24/16 Physical Exam-GI Vital Signs: Vital Signs Temperature 99.1 F 10/26/16 13:56 Pulse Rate 61 10/26/16 13:56 Respiratory Rate 18 10/26/16 13:56 Blood Pressure 135/62 10/26/16 13:56 O2 Sat by Pulse Oximetry (%) 98 10/26/16 09:00 Constitutional: Yes: Well Nourished, No Distress Neck: Yes: Supple Cardiovascular: Yes: Regular Rate and Rhythm Respiratory: Yes: CTA Bilaterally Gastrointestinal Inspection: Yes: WNL ...Auscultate: Yes: Normoactive Bowel Sounds ...Palpate: Yes: Soft. No: Tenderness Labs: CBC, BMP 10/26/16 06:00 10/26/16 06:00 INR, PTT INR 1.11 (0.82-1.09) 10/24/16 15:00 Imaging - Results X-ray: Report Reviewed (resolving SBO) Assessment/Plan 61-F with SBO now resolvingl, presumably secondary to adhesions. Advance to full liquid. If tolerated can d/c with f/u with Dr Beatty
[2016-10-27] MEDS: SODIUM CHLORIDE 1,000 ML IV SCH ×3 (04:04→22:41)
[2016-10-27] MEDS: LEVOTHYROXINE NA 100 MCG TABLET (FP) PO SCH (06:07)
[2016-10-27 08:25] LABS: BASOPHIL 0.5 % (0-2.0); EOSINOPHIL 1.6 % (0-4.5); MCH 30.3 pg (25.7-33.7); MCHC 33.6 g/dl (32.0-36.0); MEAN CELL VOLUME 90.1 fl (80-96); MEAN PLT VOLUME 7.3 fl (7.5-11.1); NEUTROPHILS 64.4 % (42.8-82.8); PLATELET COUNT 264 K/MM3 (134-434); RDW 12.6 % (11.6-15.6); WHITE BLOOD COUNT 6.6 K/mm3 (4.0-10.0)
[2016-10-27 08:52] LABS: ANION GAP 7 (8-16); CALCIUM 8.3 mg/dL (8.5-10.1); CO2 28 mmol/L (21-32); CREATININE 0.3 mg/dL (0.55-1.02); GLUCOSE,RANDOM 80 mg/dL (74-106); MAGNESIUM 1.8 mg/dL (1.8-2.4); PHOSPHOROUS 2.7 mg/dL (2.5-4.9)
[2016-10-27] MEDS: VALSARTAN 80 MG TABLET (UD) PO SCH (10:00)
--- NOTE | 2016-10-27 11:06 | PN ---
Progress Note, Physician History of Present Illness: Tolerating clears -notes had bowel movement this morning as well - Current Medication List Current Medications: Active Medications Hydromorphone HCl (Dilaudid Injection -) 0.5 mg IVPUSH Q6H PRN PRN Reason: PAIN Last Admin: 10/25/16 06:08 Dose: 0.5 mg Sodium Chloride (Normal Saline -) 1,000 mls @ 125 mls/hr IV ASDIR [facility] Last Admin: 10/27/16 05:53 Dose: 125 mls/hr Levothyroxine Sodium (Synthroid -) 100 mcg PO ACBK [facility] Last Admin: 10/27/16 06:07 Dose: 100 mcg Ondansetron HCl (Zofran Injection) 4 mg IVPB Q6H PRN PRN Reason: NAUSEA AND/OR VOMITING Valsartan (Diovan -) 80 mg PO DAILY [facility] Last Admin: 10/27/16 10:00 Dose: 80 mg - Objective Vital Signs: Vital Signs Temperature 98.2 F 10/27/16 08:16 Pulse Rate 64 10/27/16 08:16 Respiratory Rate 20 10/27/16 08:16 Blood Pressure 131/84 10/27/16 08:16 O2 Sat by Pulse Oximetry (%) 100 10/27/16 09:00 Constitutional: Yes: No Distress, Calm Cardiovascular: Yes: Regular Rate and Rhythm, S1, S2. No: Murmur Respiratory: Yes: Regular, CTA Bilaterally. No: Rales, Rhonchi, Wheezes Gastrointestinal: Yes: Normal Bowel Sounds, Soft. No: Distention, Tenderness Edema: No Labs: CBC, BMP 10/27/16 06:05 10/27/16 06:05 INR, PTT INR 1.11 (0.82-1.09) 10/24/16 15:00 Assessment/Plan Current Active Problems Hypertension (Acute) Hypothyroid (Acute) SBO (small bowel obstruction) (Acute) h/o gastric sleeve -surgery following -if continues to tolerate diet then consider d/c home
[2016-10-28] MEDS: LEVOTHYROXINE NA 100 MCG TABLET (FP) PO SCH (06:48)
[2016-10-28] MEDS: SODIUM CHLORIDE 1,000 ML IV SCH (06:49)
--- NOTE | 2016-10-28 08:31 | PN ---
Progress Note, Physician History of Present Illness: Feels OK, tolerated full fluids yesterday. Had 2 BM's yesterday. No abd pain today. - Current Medication List Current Medications: Active Medications Hydromorphone HCl (Dilaudid Injection -) 0.5 mg IVPUSH Q6H PRN PRN Reason: PAIN Last Admin: 10/25/16 06:08 Dose: 0.5 mg Sodium Chloride (Normal Saline -) 1,000 mls @ 125 mls/hr IV ASDIR [facility] Last Admin: 10/28/16 06:49 Dose: 125 mls/hr Levothyroxine Sodium (Synthroid -) 100 mcg PO ACBK [facility] Last Admin: 10/28/16 06:48 Dose: 100 mcg Ondansetron HCl (Zofran Injection) 4 mg IVPB Q6H PRN PRN Reason: NAUSEA AND/OR VOMITING Valsartan (Diovan -) 80 mg PO DAILY [facility] Last Admin: 10/27/16 10:00 Dose: 80 mg - Objective Vital Signs: Vital Signs Temperature 97.9 F 10/28/16 06:00 Pulse Rate 51 L 10/28/16 06:00 Respiratory Rate 18 10/28/16 06:00 Blood Pressure 128/74 10/28/16 06:00 O2 Sat by Pulse Oximetry (%) 100 10/27/16 21:00 Constitutional: Yes: No Distress, Calm Cardiovascular: Yes: Regular Rate and Rhythm, S1, S2. No: Murmur Respiratory: Yes: Regular, CTA Bilaterally. No: Rales, Rhonchi, Wheezes Gastrointestinal: Yes: Normal Bowel Sounds, Soft. No: Distention, Tenderness Edema: No Neurological: Yes: Alert, Oriented Labs: CBC, BMP 10/27/16 06:05 10/27/16 06:05 INR, PTT INR 1.11 (0.82-1.09) 10/24/16 15:00 Assessment/Plan Current Active Problems Hypertension (Acute) Hypothyroid (Acute) SBO (small bowel obstruction) (Acute) h/o gastric sleeve -advance diet today and d/c home if tolerates
[2016-10-28] MEDS: VALSARTAN 80 MG TABLET (UD) PO SCH (09:19)
[2016-10-28 10:51] VITALS: BP 143/75; PULSE 53; TEMP 98.2
== END 2016-10-28 11:55 | disposition home or self-care (01) | DRG 247 ==
LOC: JER 12:52 → J7W 21:20 → JERBED 23:14 → UNDOADMIN 23:14
PROVIDERS: ADMIT Internal Medicine; ATTEND Internal Medicine
PROC: 0D9670Z Drainage of Stomach with Drainage Device, Via Natural or Artificial Opening (ICD-10-PCS; principal; 2016-10-24)
DX: K56.60 Unspecified intestinal obstruction (principal); K21.9 Gastro-esophageal reflux disease without esophagitis; I10 Essential (primary) hypertension; E11.9 Type 2 diabetes mellitus without complications; E03.9 Hypothyroidism, unspecified; Z98.84 Bariatric surgery status
CPT/HCPCS: 36415; 71010-TC; 74020-TC; 74177-TC; 80048; 80053; 81003; 83605; 83735; 84100; 84484; 85025; 85610; 85730; 86850; 86900; 86901; 93005; 93010; 99284-25

== ENCOUNTER 2019-11-01 14:12 | Inpatient (IN) | payer OTHER ==
[2019-11-01] MEDS ORDERED: SODIUM CHLORIDE 0.9% 500 ML INFUS.BAG IV ONE (15:20)
[2019-11-01] MEDS ORDERED: HYDROmorphone HCL CARPU-JECT 2 MG/1 ML DISP.SYRIN IVPUSH ONE (15:20)
[2019-11-01] MEDS ORDERED: ONDANSETRON 4 MG/2 ML VIAL IVPUSH ONE (15:20)
--- NOTE | 2019-11-01 15:22 | PDOC ---
History of Present Illness - General History Source: Patient Exam Limitations: No Limitations - History of Present Illness Initial Comments: 11/01/19 15:27 Patient is a 64-year-old female with history of hypertension, hypothyroid secondary to total thyroidectomy, vitamin D deficiency, bilateral hip replacement, gastric sleeve, hernia repair, JENIFER, cholecystectomy, appendectomy, C/S x2, BTL here with complaints of abdominal pain since last night. States she had dinner about 7 PM and directly after she had abdominal bloating and generalized abdominal pain which radiated to the back. Today patient had vomiting which was bilious x3 she rates her pain as 10 out of 10 constant pressure. She had about normal bowel movement yesterday and today had a small bowel movement and is passing gas. Denies fever, chills, dysuria. Patient states she has had similar episodes of this kind of pain in the past x2 and was diagnosed with bowel obstructions. PMD: PMHX: as above PSOCHX: neg etoh, neg drug, neg cig ALL: NKDA Review of Systems: GENERAL/CONSTITUTIONAL: No fever or chills. No weakness. No weight change. HEAD, EYES, EARS, NOSE AND THROAT: No change in vision. No ear pain or discharge. No sore throat. CARDIOVASCULAR: No chest pain or shortness of breath. RESPIRATORY: No cough, wheezing, or hemoptysis. GASTROINTESTINAL: (+) nausea, vomiting, (+) diarrhea or constipation. No rectal bleeding. GENITOURINARY: No dysuria, frequency, or change in urination. MUSCULOSKELETAL: No joint or muscle swelling or pain. No neck or back pain. SKIN AND BREASTS: No rash or easy bruising. NEUROLOGIC: No headache, vertigo, loss of consciousness, or loss of sensation. PSYCHIATRIC: No depression or anxiety. ENDOCRINE: No increased thirst. No abnormal weight change. HEMATOLOGIC/LYMPHATIC: No anemia, easy bleeding, or history of blood clots. ALLERGIC/IMMUNOLOGIC: No hives or skin allergy. No latex allergy. GENERAL: [The patient is awake, alert, and fully oriented, in acute distress.] HEAD: [Normal with no signs of trauma.] EYES: [Pupils equal, round and reactive to light, extraocular movements intact, sclera anicteric, conjunctiva clear.] ENT: [Ears normal, nares patent, oropharynx clear without exudates. Moist mucous membranes.] NECK: [Normal range of motion, supple without lymphadenopathy, JVD, or masses.] LUNGS: [Breath sounds equal, clear to auscultation bilaterally. No wheezes, and no crackles.] HEART: [Regular rate and rhythm, normal S1 and S2 without murmur, rub.] ABDOMEN: [Distended, generalized tenderness, normoactive bowel sounds. (-) guarding, no rebound. No masses.] EXTREMITIES: [Normal range of motion, no edema. No clubbing or cyanosis. No cords, erythema, or tenderness.] NEUROLOGICAL: [Cranial nerves II through XII grossly intact. Normal speech, normal gait.] PSYCH: [Normal mood, normal affect.] SKIN: [Warm, Dry, normal turgor, no rashes or lesions noted.] <Stef Herrera - Last Filed: 11/01/19 23:59> <Yuli Lugo - Last Filed: 11/02/19 12:21> - General Chief Complaint: Pain Stated Complaint: ABDOMINAL PAIN Time Seen by Provider: 11/01/19 15:11 Past History - Medical History COPD: No CHF: No Diabetes: Yes GI Disorders: Yes (gerd) HTN: Yes Thyroid Disease: Yes - Surgical History Abdominal Surgery: Yes (HERNIA REPAIR) Appendectomy: Yes Cholecystectomy: Yes Orthopedic Surgery: Yes (bilateral hip replacement) - Reproductive History Is Patient Now?: No - Psycho-Social/Smoking History Smoking Status: No Smoking History: Never smoked Have you smoked in the past 12 months: No Number of Cigarettes Smoked Daily: 0 Information on smoking cessation initiated: No - Substance Abuse Hx (Audit-C & DAST Scrn) How often the patient has a drink containing alcohol: Never Score: In Men: 4 or > Positive; In Women: 3 or > Positive: 0 Screen Result (Pos requires Nsg. Audit-10AR): Negative In the last yr the pt used illegal drug/Rx for NonMed reason: No Score: Yes response is considered Positive: 0 Screen Result (Positive result requires Nsg. DAST-10): Negative <Stef Herrera - Last Filed: 11/01/19 23:59> <Yuli Lugo - Last Filed: 11/02/19 12:21> - Medical History Allergies/Adverse Reactions: Allergies Allergy/AdvReac Type Severity Reaction Status Date / Time No Known Allergies Allergy Verified 11/01/19 14:19 Home Medications: Ambulatory Orders Levothyroxine [Synthroid -] 125 mcg PO DAILY 10/24/16 Valsartan [Diovan] 40 mg PO DAILY 10/24/16 *Physical Exam - Vital Signs Last Vital Signs Temp Pulse Resp BP Pulse Ox 97.9 F 86 17 128/68 99 11/01/19 14:16 11/01/19 14:16 11/01/19 14:16 11/01/19 14:16 11/01/19 14:16 <Stef Herrera - Last Filed: 11/01/19 23:59> - Vital Signs Last Vital Signs Temp Pulse Resp BP Pulse Ox 98.1 F 77 18 143/73 99 11/02/19 04:02 11/02/19 07:25 11/02/19 07:25 11/02/19 07:25 11/02/19 07:25 <Yuli Lugo - Last Filed: 11/02/19 12:21> ED Treatment Course - LABORATORY CBC & Chemistry Diagram: 11/01/19 15:35 11/01/19 15:35 - RADIOLOGY Radiology Studies Ordered: Category Date Time Status ABDOMEN & PELVIS CT WITH CONTR [CT] Stat CT Scan 11/01/19 15:20 Ordered ABDOMEN FLAT & UPRIGHT [RAD] Stat Radiology 11/01/19 15:20 Ordered CHEST - PA [RAD] Stat Radiology 11/01/19 15:20 Ordered <Stef Herrera - Last Filed: 11/01/19 23:59> - LABORATORY CBC & Chemistry Diagram: 11/02/19 06:42 11/02/19 06:42 - ADDITIONAL ORDERS Additional order review: 11/01/19 15:35 RBC 4.35 MCV 90.7 MCHC 33.2 RDW 13.1 MPV 7.3 L Neutrophils % 92.3 H D Lymphocytes % 5.5 L D Monocytes % 2.1 L Eosinophils % 0.0 D Basophils % 0.1 - Medications Given in the ED: ED Medications Discontinued Medications Generic Name Dose Route Start Last Admin Trade Name Freq PRN Reason Stop Dose Admin Hydromorphone HCl 1 mg 11/01/19 15:20 11/01/19 15:56 Dilaudid Injection - IVPUSH 11/01/19 15:21 1 mg ONCE ONE Administration Ondansetron HCl 4 mg 11/01/19 15:20 11/01/19 15:56 Zofran Injection IVPUSH 11/01/19 15:21 4 mg ONCE ONE Administration Sodium Chloride 1,000 ml 11/01/19 15:20 11/01/19 15:56 Normal Saline - IV 11/01/19 15:21 1,000 ml ONCE ONE Administration <Yuli Lugo - Last Filed: 11/02/19 12:21> Medical Decision Making - Medical Decision Making 11/01/19 15:27 Patient is a 64-year-old female with history of hypertension, hypothyroid secondary to total thyroidectomy, vitamin D deficiency, bilateral hip replacement, gastric sleeve, hernia repair, JENIFER, cholecystectomy, appendectomy, C/S x2, BTL here with complaints of abdominal pain since last night. States she had dinner about 7 PM and directly after she had abdominal bloating and generalized abdominal pain which radiated to the back. Today patient had vomiting which was bilious x3 she rates her pain as 10 out of 10 constant p ressure. She had about normal bowel movement yesterday and today had a small bowel movement and is passing gas. Denies fever, chills, dysuria. Patient states she has had similar episodes of this kind of pain in the past x2 and was diagnosed with bowel obstructions. Patient with symptoms consistent with bowel obstruction. Labs Pain meds, antinausea, IV fluids Obstructive series, CT abdomen pelvis Reassess Will most likely be admitted. 11/01/19 16:40 X-ray reviewed note dilated loops of bowel with air-fluid levels, no free air under the diaphragm as read by MICHELLE Childs. CT scan abdomen pelvis. Patient feels improved of pain. 11/01/19 19:59 Patient Full Name: TIM FLORES Patient Accession No: [id number] Patient : [id number] Reason for Exam: PAIN Referring Physician: Patient Name: SANDRA DUMONT THIS IS A PRELIMINARY REPORT DATE OF SERVICE: 2019-11-01 18:35:24 IMAGES: 230 EXAM: CT ABDOMEN \T\ CT PELVIS CT WITH CONTR HISTORY: Pain COMPARISON: None. TECHNIQUE: Contiguous axial images were obtained from the lung bases through pelvis after the administration 79 mL Visipaque 320 intravenous contrast. Oral contrast: None. Coronal and sagittal reformations were provided. One or more of the following dose reduction techniques were used: Automated exposure control adjustment of the mA and/or kV according to the patient size, use of iterative reconstructive technique. FINDINGS: LUNGS: The lung bases are:Clear. LIVER:Unremarkable GALLBLADDER AND BILIARY SYSTEM: Gallbladder is surgically absent. There is no biliary tract dilatation. PANCREAS:Unremarkable SPLEEN:Unremarkable ADRENAL GLANDS ARE: Unremarkable TRACT-: No significant renal lesion. No hydronephrosis or hydroureter. Urinary bladder is unremarkable. STOMACH AND BOWEL: Gastric postoperative changes noted. There is no bowel wall thickening. There is dilated small bowel measuring up to 3 cm. Exact transition is not well delineated but is suggested in the mid anterior abdomen. The appendix is not visualized. No pericecal inflammation. PERITONEUM/RETROPERITONEUM: There is no free intraperitoneal air. No free or focal fluid collection. No pathologically enlarged adenopathy. VESSELS: The abdominal aorta and its major branching vessels are patent. No aortic aneurysm. There is moderate arthrosclerotic change. PELVIS: Evaluation is limited due to streak artifact from bilateral hip prosthesis. No pathologically enlarged pelvic or inguinal adenopathy. MUSCULOSKELETAL: No aggressive bone lesion. Bilateral hip prosthesis appear anatomic. Degenerative changes. There is curvature of the spine convex to the right. IMPRESSION: 1. Small bowel dilatation suggesting obstruction. Transition is not well delineated but is suggested in the mid anterior abdomen. No free fluid, free air. One or more of the following dose reduction techniques were used: automated exposure control, adjustment of the mA and/or kV according to patient size, use of iterative reconstructive technique. THIS DOCUMENT HAS BEEN ELECTRONICALLY SIGNED Jennifer Bhandari MD 11/01/2019 19:04 ARINA Loza. Please call Imaging Helpdesk Analyst [phone] ([phone]) with questions. INTERPRETING RADIOLOGIST: Jennifer Bhandari MD Electronically Signed: Nov 01, 2019 07:06PM EDT Will admit the patient NGT <Stef Herrera - Last Filed: 11/01/19 23:59> - Medical Decision Making I reviewed the case with the mid-level practitioner and agree with the mid-level practitioner's assessment, diagnosis and disposition. <Yuli Lugo - Last Filed: 09/07/20 12:21> Discharge - Discharge Information Problems reviewed: Yes - Admission Yes <Stef Herrera - Last Filed: 11/01/19 23:59> <Yuli Lugo - Last Filed: 11/02/19 12:21> - Discharge Information Clinical Impression/Diagnosis: Small bowel obstruction Condition: Stable
[2019-11-01] MEDS ORDERED: HYDROmorphone HCl 2 MG/ML VIAL ONE (15:35)
[2019-11-01 16:04] LABS: BASO % 0.1 % (0-2.0); HEMATOCRIT 39.4 % (32.4-45.2); HEMOGLOBIN 13.1 GM/dL (10.7-15.3); LYMPH % 5.5 % (8-40); MCH 30.1 pg (25.7-33.7); MCHC 33.2 g/dl (32.0-36.0); MEAN CELL VOLUME 90.7 fl (80-96); MEAN PLT VOLUME 7.3 fl (7.5-11.1); MONO % 2.1 % (3.8-10.2); NEUT % 92.3 % (42.8-82.8); PLATELET COUNT 391 K/MM3 (134-434); RBC 4.35 M/mm3 (3.60-5.2); RDW 13.1 % (11.6-15.6); WHITE BLOOD COUNT 15.3 K/mm3 (4.0-10.0)
[2019-11-01 16:36] LABS: ALBUMIN 4.4 g/dl (3.4-5.0); ALK PHOS 94 U/L (45-117); ANION GAP 10 MMOL/L (8-16); BILIRUBIN,TOTAL 0.5 mg/dL (0.2-1); BLOOD UREA NITROGEN 19.6 mg/dL (7-18); CALCIUM 10.4 mg/dL (8.5-10.1); CHLORIDE 100 mmol/L (98-107); CO2 26 mmol/L (21-32); CREATININE 0.7 mg/dL (0.55-1.3); GLUCOSE,RANDOM 190 mg/dL (74-106); LIPASE 93 U/L (73-393); POTASSIUM 4.3 mmol/L (3.5-5.1); SGOT/AST 22 U/L (15-37); SGPT/ALT 32 U/L (13-61); SODIUM 136 mmol/L (136-145); TOT PROT 8.9 g/dl (6.4-8.2)
[2019-11-01 17:15] LABS: ANISOCYTOSIS 0; MACROCYTOSIS 0; PLATELET ESTIMATE NORMAL
--- NOTE | 2019-11-01 21:28 | PN ---
Teaching Attending Note Name of Resident: Meliza Gutierrez ATTENDING PHYSICIAN STATEMENT I saw and evaluated the patient. I reviewed the resident's note and discussed the case with the resident. I agree with the resident's findings and plan as documented. SUBJECTIVE: 64yoF with history of GERD, HTN, hypothyroid, T2DM, multiple intraabdominal surgeries including hernia repair, JENIFER, cholecystectomy, appendectomy, and gastric sleeve, and multiple episodes of SBO who presents with abdominal pain and cramping. Notes developing abdominal pain and distention after dinner last night. Today she has had worsening abdominal pain in addition to bilious emesis, which has continued since arriving to the ED. Endorses chills. Has not passed gas since this morning and last bowel movement was yesterday. Patient was afebrile and hemodynamically stable in the ED. Work up notable for WBC 15.3, CT abd/pelvis on preliminary read showing evidence of SBO. NG tube was placed in the ED. Patient received 1L NS, Dilaudid 1mg, and Zofran with improvement in pain. ROS: (+) abd pain, nausea, vomiting, chills (-) hematemesis, SOB, chest pain, syncope OBJECTIVE: Vital Signs - 24 hr 11/01/19 14:16 Temperature 97.9 F Pulse Rate 86 Respiratory 17 Rate Blood Pressure 128/68 O2 Sat by Pulse 99 Oximetry (%) EXAM Gen: Awake, alert, uncomfortable appearing but in no acute distress HEENT: NGT in place. NC/AT CV: RRR, 2/6 systolic murmur best heard RUSB Resp: CTAB Abd: Soft, mildly distended, mild tenderness to palpation right lower quadrant. Bowel sounds active throughout Ext: No edema Neuro: CN II-XII grossly intact Psych: AOx3 Laboratory Results - last 24 hr 11/01/19 11/01/19 15:35 15:35 WBC 15.3 H RBC 4.35 Hgb 13.1 Hct 39.4 MCV 90.7 MCH 30.1 MCHC 33.2 RDW 13.1 Plt Count 391 D MPV 7.3 L Absolute Neuts (auto) 14.1 H Neutrophils % 92.3 H D Neutrophils % (Manual) 94.0 H Band Neutrophils % 0.0 Lymphocytes % 5.5 L D Lymphocytes % (Manual) 3.0 L Monocytes % 2.1 L Monocytes % (Manual) 3 L Eosinophils % 0.0 D Eosinophils % (Manual) 0.0 Basophils % 0.1 Basophils % (Manual) 0.0 Myelocytes % (Man) 0 Promyelocytes % (Man) 0 Blast Cells % (Manual) 0 Nucleated RBC % 0 Metamyelocytes 0 Hypochromia 0 Platelet Estimate Normal Polychromasia 0 Poikilocytosis 0 Anisocytosis 0 Microcytosis 0 Macrocytosis 0 Sodium 136 Potassium 4.3 Chloride 100 Carbon Dioxide 26 Anion Gap 10 BUN 19.6 H Creatinine 0.7 Est GFR (CKD-EPI)AfAm 106.87 Est GFR (CKD-EPI)NonAf 92.21 Random Glucose 190 H Calcium 10.4 H Total Bilirubin 0.5 AST 22 ALT 32 Alkaline Phosphatase 94 Creatine Kinase 118 Troponin I < 0.02 Total Protein 8.9 H Albumin 4.4 Lipase 93 Imaging reviewed in chart ASSESSMENT AND PLAN: 64yoF with history of GERD, HTN, hypothyroid, T2DM, multiple intraabdominal surgeries including hernia repair, JENIFER, cholecystectomy, appendectomy, and gastric sleeve, and multiple episodes of SBO who presents with abdominal pain and cramping. Recurrent SBO Two prior episodes, most recently 2017 Numerous intraabdominal surgeries in the past - NGT to intermittent suction - NPO - IVF - morphine, Zofran PRN - surgery consult Chronic, stable: Hypothyroid: Resume levothyroxine when able to tolerate PO HTN: currently normotensive. Consider intermittent hydralazine IV if needed while NPO T2DM: ISS Systolic murmur: known history, reports normal echo 07/2019 DVT ppx: Lovenox subq
[2019-11-01] MEDS ORDERED: morphine SULFATE 4 MG/ML VIAL IVPUSH PRN (22:49)
[2019-11-01] MEDS ORDERED: ONDANSETRON 4 MG/2 ML VIAL IVPUSH PRN (22:50)
--- NOTE | 2019-11-01 22:56 | HP ---
CHIEF COMPLAINT: my belly started hurting last night PCP: Dr. Jelena Calvert HISTORY OF PRESENT ILLNESS: 64yo F with PHMx of HTN, vit D deficiency, hypothyroidism, and 10 surgical procedures including thyroidectomy, bilateral knee replacement, one , bilateral tubal ligation, total abdominal hysterectomy, appendectomy, cholecystectomy, hernia repair, and gastric sleeve who presented with abdominal pain. The pain started last night after she had some of her traditional soup. She took some anti-nausea medication but that did not provide relief. This morning the pain persisted and she experienced 3 episodes of non-bloody emesis. Her lack of symptomatic improvement prompter her to come to the ED, daughter was at bedside. Patient said the pain was 10/10 at its worst but has been much better since receiving morphine. This happened to her before, once exactly on this weekend 3 years ago, and another time ~10-15 years ago. Both times she was managed conservatively without requiring surgery. In addition to nausea and emesis, patient was also experiencing some chills and diaphoresis at home. She denied Headaches, dizziness, CP, SOB, palpitations, dysuria, polyuria, diarrhea, and constipation. Since everything started she has not been able to tolerate PO intake. ER course was notable for: (1) temp afebrile 97.9 (2) leukocytosis 15.4 with neutrophilic predominance (3) Pelvic/Abdominal CT: 3cm dilated small bowel suggesting obstruction Recent Travel: denied PAST MEDICAL HISTORY: as per HPI PAST SURGICAL HISTORY: as per HPI Family History: father: of thyroid cancer mother: HTN, diet of heart attack sister: NTN brother: HTN son: overweight, HTN other son and daughter are healthy Social History: Smoking: denied Alcohol: socially - maybe once per month Drugs: denied Home: lives at home with daughter Allergies No Known Allergies Allergy (Verified 11/01/19 14:19) HOME MEDICATIONS: Home Medications Medication Instructions Recorded Levothyroxine [Synthroid -] 100 mcg PO DAILY 10/24/16 Valsartan [Diovan] 80 mg PO DAILY 10/24/16 REVIEW OF SYSTEMS as per HPI PHYSICAL EXAMINATION Vital Signs - 24 hr 11/01/19 14:16 Temperature 97.9 F Pulse Rate 86 Respiratory 17 Rate Blood Pressure 128/68 O2 Sat by Pulse 99 Oximetry (%) GENERAL: F, appears stated age, comfortably on ED bed in no acute distress, AAOx3 with daughter at bedside HEAD: Normal with no signs of trauma EYES: Pupils equal, round and reactive to light, extraocular movements intact EARS, NOSE, THROAT: dry mucous membranes NECK: No lymphadenopathy noted LUNGS: CTAB HEART: Regular rate and rhythm, normal S1 and S2 without murmur ABDOMEN: Soft, mild discomfort on percussion in all quadrants, not distended, hypoactive bowel sounds, no guarding or rebound noted EXTREMITIES: 2+ dorsalis pedis and radial pulses, warm, well-perfused. No calf tenderness. No peripheral edema. NEUROLOGICAL: Cranial nerves II-XII intact. Normal speech with symmetrical facial movements PSYCHIATRIC: Cooperative and interactive. Good eye contact. Appropriate mood and affect. SKIN: no rashes or lesions noted Abnormal Lab Results 11/01/19 11/01/19 11/02/19 15:35 15:35 06:42 WBC 15.3 H 12.7 H MPV 7.3 L 7.3 L Absolute Neuts (auto) 14.1 H 9.7 H Neutrophils % 92.3 H D Neutrophils % (Manual) 94.0 H Lymphocytes % 5.5 L D Lymphocytes % (Manual) 3.0 L Monocytes % 2.1 L Monocytes % (Manual) 3 L BUN 19.6 H Random Glucose 190 H Calcium 10.4 H Total Protein 8.9 H ASSESSMENT/PLAN: 64yo F with PHMx of HTN, vit D deficiency, hypothyroidism, and 10 surgical procedures including thyroidectomy, bilateral knee replacement, one , bilateral tubal ligation, total abdominal hysterectomy, appendectomy, cholecystectomy, hernia repair, and gastric sleeve who presented with abdominal pain. Patient was afebrile on admission and initial labs showed 15.3 leukocytosis with neutrophilic predominance. Pelvic/Abdominal CT showed 3cm dilated small bowel suggesting obstruction, and patient was admitted for further management of SBO. Abdominal pain 2/2 to SBO likely caused by adhesions: patient has extensive surgical history, also had SBO twice prior to this admission - consulted surgery - NG tube placement with f/u CXR ordered - PRN morphine and tylenol for pain - PRN zofran for nausea - NPO with 100cc/h IVF Hypothyroidism 2/2 to thyroidectomy (family history of thyroid cancer) - resume home levothyroxine HTN - hold home telmisartan for now - restart when clinically indicated PPX - DVT: lovenox FEN - 100cc/h NS - replete lytes PRN - NPO Dispo: [facility] Family Medical History Family History: As Documented Visit type - Emergency Visit Emergency Visit: Yes ED Registration Date: 11/01/19 Care time: The patient presented to the Emergency Department on the above date and was hospitalized for further evaluation of their emergent condition. - New Patient This patient is new to me today: Yes Date on this admission: 11/02/19 - Critical Care Critical Care patient: No ATTENDING PHYSICIAN STATEMENT I saw and evaluated the patient. I reviewed the resident's note and discussed the case with the resident. I agree with the resident's findings and plan as documented. SUBJECTIVE: OBJECTIVE: ASSESSMENT AND PLAN:
[2019-11-02] MEDS ORDERED: ACETAMINOPHEN INJECTION 100 ML IVPB ONE ×2 (01:51→17:09)
[2019-11-02] MEDS: SODIUM CHLORIDE 1,000 ML IV SCH (01:54)
[2019-11-02] MEDS: ACETAMINOPHEN 1000 MG/100 ML VIAL (NON FORMULARY) IVPB PRN ×2 (01:55→17:09)
[2019-11-02] MEDS ORDERED: LEVOTHYROXINE NA 125 MCG TABLET (FP) PO SCH (07:00)
[2019-11-02 07:18] LABS: BASO % 0.2 % (0-2.0); EOS % 0.6 % (0-4.5); HEMATOCRIT 35.2 % (32.4-45.2); HEMOGLOBIN 11.6 GM/dL (10.7-15.3); LYMPH % 16.6 % (8-40); MEAN CELL VOLUME 90.9 fl (80-96); MEAN PLT VOLUME 7.3 fl (7.5-11.1); MONO % 5.9 % (3.8-10.2); NEUT % 76.7 % (42.8-82.8); PLATELET COUNT 314 K/MM3 (134-434); RBC 3.87 M/mm3 (3.60-5.2); WHITE BLOOD COUNT 12.7 K/mm3 (4.0-10.0)
[2019-11-02 07:56] LABS: BLOOD UREA NITROGEN 15.2 mg/dL (7-18); CALCIUM 8.9 mg/dL (8.5-10.1); CREATININE 0.4 mg/dL (0.55-1.3); MAGNESIUM 2.3 mg/dL (1.8-2.4); PHOSPHOROUS 3.1 mg/dL (2.5-4.9); POTASSIUM 3.9 mmol/L (3.5-5.1)
[2019-11-02 07:57] LABS: ALBUMIN 3.3 g/dl (3.4-5.0)
[2019-11-02 07:59] LABS: BILIRUBIN,TOTAL 0.6 mg/dL (0.2-1)
[2019-11-02] MEDS: ENOXAPARIN NA (PORCINE) 40 MG/0.4 ML DISP.SYRIN SQ SCH (09:32)
--- NOTE | 2019-11-02 09:56 | CONSULT ---
- Consultation REQUESTING PROVIDER: Angela Gutierrez MD CONSULT REQUEST: We have been asked to surgically evaluate this patient for a small bowel obstruction. Hospitalist:Colt Reis MD HISTORY OF PRESENT ILLNESS: YASMINE who is a 64 y/o female last seen by me 10/25/2016 with an sbo txed conservatively w/a good response and now presenting for evaluation and management of a # recurrent SBO; patient has had # abdominal surgeries in the past; she came in b/o crampy abdominal pain; she states she is not passing flatus. She has NOC; she had nausea w/o vomiting. She has had other sbo's in the past. She has no other GI//[employer] c/o. PMHx: hypothyroid; hypertension PSHx: open helen; appendectomy; sleeve gastrectomy; JENIFER; incisional hernia repair; C-S; b/l THR and previous h/o SBO Home Medications Medication Instructions Recorded Levothyroxine [Synthroid -] 125 mcg PO DAILY 10/24/16 Valsartan [Diovan] 40 mg PO DAILY 10/24/16 Allergies Allergy/AdvReac Type Severity Reaction Status Date / Time No Known Allergies Allergy Verified 11/01/19 14:19 REVIEW OF SYSTEMS: CONSTITUTIONAL: Absent: fever, chills, diaphoresis, generalized weakness, malaise, loss of appetite, weight change CARDIOVASCULAR: Absent: chest pain, syncope, palpitations, irregular heart rate, lightheadedness, peripheral edema RESPIRATORY: Absent: cough, shortness of breath, dyspnea with exertion, wheezing, stridor, hemoptysis GASTROINTESTINAL: Present: abdominal pain, abdominal distension, nausea, vomiting, Absent: diarrhea, constipation, melena, hematochezia GENITOURINARY: Absent: dysuria, frequency, urgency, hesitancy, hematuria, flank pain, genital pain MUSCULOSKELETAL: Absent: myalgia, arthralgia, joint swelling, back pain, neck pain SKIN: Absent: rash, itching, pallor HEMATOLOGIC/IMMUNOLOGIC: Absent: easy bleeding, easy bruising, lymphadenopathy NEUROLOGIC: Absent: headache, focal weakness, paresthesias, dizziness, unsteady gait, seizure, mental status changes, bladder or bowel incontinence PSYCHIATRIC: Absent: anxiety, depression, suicidal or homicidal ideation, hallucinations. PHYSICAL EXAM: GENERAL: Awake, alert, and fully oriented, in no acute distress. HEAD: Normal with no signs of trauma. EYES: sclera anicteric, conjunctiva clear. NECK: Normal ROM, supple without lymphadenopathy, JVD, or masses. ABDOMEN: Soft, nontender, minimally distended and tympanitic, hypoactive bowel sounds, no guarding, no rebound, no masses. No organomegaly. # scars; no he rnias. MUSCULOSKELETAL: Normal ROM at all joints. No bony deformities or tenderness. No CVA tenderness. UPPER EXTREMITIES: 2+ pulses, warm, well-perfused. No cyanosis. Cap refill <2 seconds. No peripheral edema. LOWER EXTREMITIES: 2+ pulses, warm, well-perfused. No calf tenderness. No peripheral edema. NEUROLOGICAL: Normal speech, gait not observed. PSYCH: Cooperative. Good eye contact. Appropriate mood and affect. SKIN: Warm, dry, normal turgor, no rashes or lesions noted. Vital Signs Temperature 98.1 F 11/02/19 04:02 Pulse Rate 77 11/02/19 07:25 Respiratory Rate 18 11/02/19 07:25 Blood Pressure 143/73 11/02/19 07:25 O2 Sat by Pulse Oximetry (%) 99 11/02/19 07:25 Lab Results WBC 12.7 K/mm3 (4.0-10.0) H 11/02/19 06:42 RBC 3.87 M/mm3 (3.60-5.2) 11/02/19 06:42 Hgb 11.6 GM/dL (10.7-15.3) 11/02/19 06:42 Hct 35.2 % (32.4-45.2) 11/02/19 06:42 MCV 90.9 fl (80-96) 11/02/19 06:42 MCHC 33.0 g/dl (32.0-36.0) 11/02/19 06:42 RDW 13.0 % (11.6-15.6) 11/02/19 06:42 Plt Count 314 K/MM3 (134-434) 11/02/19 06:42 Sodium 140 mmol/L (136-145) 11/02/19 06:42 Potassium 3.9 mmol/L (3.5-5.1) 11/02/19 06:42 Chloride 106 mmol/L (98-107) 11/02/19 06:42 Carbon Dioxide 25 mmol/L (21-32) 11/02/19 06:42 Anion Gap 9 MMOL/L (8-16) 11/02/19 06:42 BUN 15.2 mg/dL (7-18) 11/02/19 06:42 Creatinine 0.4 mg/dL (0.55-1.3) L 11/02/19 06:42 Random Glucose 102 mg/dL (74-106) 11/02/19 06:42 Calcium 8.9 mg/dL (8.5-10.1) 11/02/19 06:42 Imaging w/u to date reviewed including plain films and CT scan of the a/p IMP: # recurrent SBO PLAN: NPO/IVF/NGT/serial exams and abdominal xrays and possible operatiive intervention if failed conservative tx.; a/a/u by the patient. Gokul Rodriguez MD FACS
--- NOTE | 2019-11-02 17:41 | PN ---
Physical Exam: SUBJECTIVE: Patient seen and examined OBJECTIVE: Vital Signs Period Temp Pulse Resp BP Sys/Monte Pulse Ox Last 24 Hr 98.1 F-98.2 F 65-77 17-18 130-149/58-73 96-99 GENERAL: The patient is awake, alert, and fully oriented, in no acute distress. HEENT: AT/NC, PERRLA, NG tube NECK: Trachea midline, full range of motion, supple. LUNGS: Breath sounds equal, clear to auscultation bilaterally, no wheezes, no crackles, no accessory muscle use. HEART: Regular rate and rhythm, S1, S2, JT systolic ejection murmur, rub or gallop. ABDOMEN: Soft, nontender, nondistended, normoactive bowel sounds, no guarding, no rebound, no hepatosplenomegaly, no masses. EXTREMITIES: 2+ pulses, warm, well-perfused, no edema. NEUROLOGICAL: Cranial nerves II through XII grossly intact. Normal speech, gait not observed. Laboratory Results - last 24 hr 11/02/19 11/02/19 06:42 06:42 WBC 12.7 H RBC 3.87 Hgb 11.6 Hct 35.2 MCV 90.9 MCH 30.0 MCHC 33.0 RDW 13.0 Plt Count 314 MPV 7.3 L Absolute Neuts (auto) 9.7 H Neutrophils % 76.7 Lymphocytes % 16.6 D Monocytes % 5.9 D Eosinophils % 0.6 D Basophils % 0.2 Nucleated RBC % 0 Sodium 140 Potassium 3.9 Chloride 106 Carbon Dioxide 25 Anion Gap 9 BUN 15.2 Creatinine 0.4 L Est GFR (CKD-EPI)AfAm 128.47 Est GFR (CKD-EPI)NonAf 110.85 Random Glucose 102 Calcium 8.9 Phosphorus 3.1 Magnesium 2.3 Total Bilirubin 0.6 AST 22 ALT 28 Alkaline Phosphatase 74 Total Protein 7.0 Albumin 3.3 L Active Medications Generic Name Dose Route Start Last Admin Trade Name Freq PRN Reason Stop Dose Admin Acetaminophen 1,000 mg 11/01/19 22:51 11/02/19 17:09 Ofirmev Injection - IVPB 11/02/19 22:51 1,000 mg Q6H PRN Administration PAIN Enoxaparin Sodium 40 mg 11/02/19 10:00 11/02/19 09:32 Lovenox - SQ 40 mg DAILY ELLEN Administration Sodium Chloride 1,000 mls @ 100 mls/hr 11/01/19 23:00 11/02/19 01:54 Normal Saline - IV 11/03/19 08:59 100 mls/hr ASDIR ELLEN Administration Levothyroxine Sodium 125 mcg 11/02/19 07:00 11/02/19 08:23 Synthroid - PO Not Given DAILY@0700 ELLEN Morphine Sulfate 4 mg 11/01/19 22:49 Morphine Sulfate IVPUSH Q4H PRN PAIN LEVEL 7 - 10 Ondansetron HCl 4 mg 11/01/19 22:50 Zofran Injection IVPUSH Q4H PRN NAUSEA AND/OR VOMITING ASSESSMENT/PLAN: 64 yo lady with Mhx of GERD, HTN, hypothyroid, T2DM, multiple intraabdominal surgeries (hernia repair, JENIFER, cholecystectomy, appendectomy, and gastric sleeve) and multiple episodes of SBO who presents with abdominal pain and cramping. # Recurrent SBO this is her 3rd episode NGT, NPO, IVF, bowel rest pain management as indicated Systolic ejection murmur: aortic stenosis?, reports normal echo 07/2019 cardiology consult with her saw boss (Dr. Wheat) surgery consult Hypothyroid (started IV as pt is NPO) HTN T2DM DVT ppx: Lovenox subq Visit type - Emergency Visit Emergency Visit: Yes ED Registration Date: 11/01/19 Care time: The patient presented to the Emergency Department on the above date and was hospitalized for further evaluation of their emergent condition. - New Patient This patient is new to me today: Yes Date on this admission: 11/02/19 - Critical Care Critical Care patient: No - Discharge Referral Referred to [facility] Med [facility] No
[2019-11-02 21:00] VITALS: BMI 29.4
--- NOTE | 2019-11-02 21:24 | EKG ---
Test Reason : Blood Pressure : / mmHG Vent. Rate : 070 BPM Atrial Rate : 070 BPM P-R Int : 196 ms QRS Dur : 098 ms QT Int : 402 ms P-R-T Axes : 001 -05 017 degrees QTc Int : 434 ms NORMAL SINUS RHYTHM SEPTAL INFARCT (CITED ON OR BEFORE 24-OCT-2016) ABNORMAL ECG WHEN COMPARED WITH ECG OF 24-OCT-2016 15:14, NO SIGNIFICANT CHANGE WAS FOUND Confirmed by HOMAR MARCUM, JOAO ([id number]) on 11/02/2019 9:23:46 PM Referred By: Confirmed By:JOAO GRAF MD
[2019-11-03] MEDS: SODIUM CHLORIDE 1,000 ML IV SCH ×2 (00:21→17:46)
[2019-11-03 07:32] LABS: HEMATOCRIT 35.9 % (32.4-45.2); HEMOGLOBIN 11.9 GM/dL (10.7-15.3); MCH 30.3 pg (25.7-33.7); MCHC 33.1 g/dl (32.0-36.0); MEAN CELL VOLUME 91.7 fl (80-96); MEAN PLT VOLUME 7.5 fl (7.5-11.1); PLATELET COUNT 333 K/MM3 (134-434); RBC 3.92 M/mm3 (3.60-5.2); RDW 13.1 % (11.6-15.6); WHITE BLOOD COUNT 12.9 K/mm3 (4.0-10.0)
[2019-11-03 08:02] LABS: ALBUMIN 3.4 g/dl (3.4-5.0); BILIRUBIN,TOTAL 0.6 mg/dL (0.2-1); BLOOD UREA NITROGEN 10.2 mg/dL (7-18); CREATININE 0.5 mg/dL (0.55-1.3); MAGNESIUM 1.9 mg/dL (1.8-2.4); POTASSIUM 3.9 mmol/L (3.5-5.1)
--- NOTE | 2019-11-03 10:24 | PN ---
Progress Note (short form) - Note Progress Note: GENERAL SURGERY Patient is well known to the Surgery Service as Dr. Rodriguez recently cared for her with her most recent admission (same problem, SBO which was managed conservatively). Admitted with recurrent SBO. PSHx of multiple ABD surgeries. Passed flatus while in ED. Currently, supine in bed. C/o mild LLQ ttp. Had some nausea last night but quelled with antiemetic. NGT remains in with very little in the canister. Denies n/v/f/c, CP, palpitations, SOB or BERGER. States she continues to pass flatus but no BM since admission. Last Vital Signs Temp Pulse Resp BP Pulse Ox 99.2 F 63 18 156/70 99 11/03/19 05:00 11/03/19 05:00 11/03/19 05:00 11/03/19 05:00 11/03/19 05:00 CBC, BMP 11/03/19 06:40 11/03/19 06:40 GEN: alert. nad PULM: unlabored respirations on room air COR: rrr ABD: soft. slight llq ttp. bowel sounds present. no rebound/rigidity/guarding A/P: 64 yo female admitted with recurrent SBO (h/o multiple abd surgeries). Managed conservatively in the past. -f/u AXR (flat & upright) -NGT to bedside bag and check residual in 4 hours (possible dc today) -replete elytes prn -If fails to progress may need diagnostic laparoscopy vs. exlap -Medical optimization Above plan discussed with Dr. Rodriguez and agrees. <Duane Chapman P - Last Filed: 11/03/19 10:26> - Note Progress Note: Attending Surgeon Attending Surgeon: I personally saw and examined the patient. My examination reveals a patient with a SBO. I discussed the case with the surgical PA and agree with their findings and plan of care with any exceptions as noted. ~ Gokul Rodriguez MD, FACS Passing flatus; AXR improved NGT removed; keep NPO. Gokul Rodriguez MD FACS <Gokul Rodriguez N - Last Filed: 11/03/19 17:21>
[2019-11-03] MEDS: ENOXAPARIN NA (PORCINE) 40 MG/0.4 ML DISP.SYRIN SQ SCH (11:16)
--- NOTE | 2019-11-03 12:39 | CON.CARD ---
Consult Consult Specialty:: Cardiology Referred by:: Medicine Reason for Consultation:: murmur - History of Present Illness Chief Complaint: abd pain History of Present Illness: 64F h/o HTN, hypothyroidism p/w abdominal pain starting night prior to admission. no chest pain, palps, dizziness, dyspnea. sees Dr. Wheat for cardio. Imaging here shows SBO. - Past Medical History ...: No Endocrine: Yes: Hypothyroidism - Alcohol/Substance Use Hx Alcohol Use: Yes (SOCIAL) - Smoking History Smoking history: Never smoked Have you smoked in the past 12 months: No Aproximately how many cigarettes per day: 0 Home Medications - Allergies Allergies/Adverse Reactions: Allergies Allergy/AdvReac Type Severity Reaction Status Date / Time No Known Allergies Allergy Verified 11/01/19 14:19 - Home Medications Home Medications: Ambulatory Orders Levothyroxine [Synthroid -] 125 mcg PO DAILY 10/24/16 Valsartan [Diovan] 40 mg PO DAILY 10/24/16 Ergocalciferol (Vitamin D2) [Vitamin D2] 50,000 unit PO WEEKLY 11/02/19 Family Medical History Family History: Unremarkable Review of Systems - Review of Systems Constitutional: reports: No Symptoms Eyes: reports: No Symptoms HENT: reports: No Symptoms Neck: reports: No Symptoms Cardiovascular: reports: No Symptoms Gastrointestinal: reports: Abdominal Pain Genitourinary: reports: No Symptoms Musculoskeletal: reports: No Symptoms Integumentary: reports: No Symptoms Neurological: reports: No Symptoms Endocrine: reports: No Symptoms Hematology/Lymphatic: reports: No Symptoms Psychiatric: reports: No Symptoms Vital Signs: Vital Signs Temperature 99.3 F 11/03/19 11:28 Pulse Rate 72 11/03/19 11:28 Respiratory Rate 18 11/03/19 11:28 Blood Pressure 150/75 11/03/19 11:28 O2 Sat by Pulse Oximetry (%) 96 11/03/19 11:28 Constitutional: Yes: Well Nourished, No Distress, Calm Eyes: Yes: Conjunctiva Clear, EOM Intact HENT: Yes: Atraumatic, Normocephalic Neck: Yes: Supple, Trachea Midline Respiratory: Yes: Regular, CTA Bilaterally Gastrointestinal: Yes: Soft. No: Tenderness Cardiovascular: Yes: Regular Rate and Rhythm JVD: No Heart Sounds: Yes: S1, S2 Murmur: Yes: Systolic Murmur (II/ RUSB) Musculoskeletal: No: Back Pain Extremities: No: Cold Edema: No Integumentary: No: Jaundice Neurological: Yes: Alert, Oriented Psychiatric: No: Agitated - Other Data Labs, Other Data: CBC, BMP 11/03/19 06:40 11/03/19 06:40 Assessment/Plan echo 08/2019 nl LV/RV function, small PFO with L to R flow, tr TR, tr MD EKG: sinus, nl intervals, no ischemic changes preop, abd pain, SBO - manage per surgery - recent echo unremarkable - she is at acceptable risk for abdominal surgery if needed, no further testing prior to procedure murmur - recent office echo unremarkable, no further testing here hypothyroidism - manage per primary HTN - holding home meds - NPO with NGT to suction - monitor BP for now
[2019-11-03] MEDS: LEVOTHYROXINE SODIUM 100 MCG VIAL IVPUSH SCH (13:50)
--- NOTE | 2019-11-03 14:52 | PN ---
Physical Exam: SUBJECTIVE: Patient seen and examined. States abdominal pain much decrease from admission. Denies any fever/chills, SOB, N/V. States she is passing gas. NG tube fell out overnight, replaced and XR shows in place. OBJECTIVE: Vital Signs Period Temp Pulse Resp BP Sys/Monte Pulse Ox Last 24 Hr 99 F-99.5 F 63-73 17-18 140-156/64-75 96-99 GENERAL: The patient is awake, alert, and fully oriented, in no acute distress. HEAD: Normal with no signs of trauma. EYES: PERRL, extraocular movements intact, sclera anicteric, conjunctiva clear. No ptosis. ENT: Ears normal, nares patent, oropharynx clear without exudates, moist mucous membranes. NECK: Trachea midline, full range of motion, supple. LUNGS: Breath sounds equal, clear to auscultation bilaterally, no wheezes, no crackles, no accessory muscle use. HEART: Regular rate and rhythm, S1, S2 without murmur, rub or gallop. ABDOMEN: Soft, tender to palpation, hypoactive bowel sounds, nondistended, normoactive bowel sounds, no guarding, no rebound, no hepatosplenomegaly, no masses. EXTREMITIES: 2+ pulses, warm, well-perfused, no edema. NEUROLOGICAL: Cranial nerves II through XII grossly intact. Normal speech, gait not observed. PSYCH: Normal mood, normal affect. SKIN: Warm, dry, normal turgor, no rashes or lesions noted Laboratory Results - last 24 hr 11/01/19 11/03/19 11/03/19 20:55 06:40 06:40 WBC 12.9 H RBC 3.92 Hgb 11.9 Hct 35.9 MCV 91.7 MCH 30.3 MCHC 33.1 RDW 13.1 Plt Count 333 MPV 7.5 Sodium 142 Potassium 3.9 Chloride 109 H Carbon Dioxide 25 Anion Gap 9 BUN 10.2 Creatinine 0.5 L Est GFR (CKD-EPI)AfAm 119.38 Est GFR (CKD-EPI)NonAf 103.00 Random Glucose 84 Calcium 8.0 L Magnesium 1.9 Total Bilirubin 0.6 AST 20 ALT 25 Alkaline Phosphatase 75 Total Protein 7.0 Albumin 3.4 TSH 0.81 COVID-19 (WILLIAM) Not detected Active Medications Generic Name Dose Route Start Last Admin Trade Name Freq PRN Reason Stop Dose Admin Enoxaparin Sodium 40 mg 11/02/19 10:00 11/03/19 11:16 Lovenox - SQ 40 mg DAILY ELLEN Administration Levothyroxine Sodium 75 mcg 11/03/19 10:00 11/03/19 13:50 Synthroid Injection - IVPUSH 75 mcg DAILY ELLEN Administration Morphine Sulfate 4 mg 11/01/19 22:49 Morphine Sulfate IVPUSH Q4H PRN PAIN LEVEL 7 - 10 Ondansetron HCl 4 mg 11/01/19 22:50 11/02/19 20:22 Zofran Injection IVPUSH 4 mg Q4H PRN Administration NAUSEA AND/OR VOMITING ASSESSMENT/PLAN: Pt is a 64 year old female with PMHx of GERD, HTN, hypothyroid, DM2, multiple intraabdominal surgeries (hernia repair, JENIFER, cholecystectomy, appendectomy, and gastric sleeve), and episodes of SBO in the past, presenting with abdominal pain. #Recurrent SBO -multiple episodes of SBO in the past -NPO, BGT, IVF, bowel rest -Morphine 4mg prn for pain -Surgery consulted --> continue management, serial abdominal x-rays, possible intervention if no improvement in sx -Repeat abdominal x-ray shows partial improvement - still some air distended loops of small bowels; air and stool seen in colon #Hx of hypothyroid -On IV synthroid due to NPO status #Hx of HTN -Held home telmisartan for now -monitor BP #Hx of DM2 -A1c ordered -not on meds at home PPx Lovenox FEN NPO Monitor electrolytes NS 100cc/hr Dispo: Admitted to med surg. IVF, NGtube and NPO, bowel rest. Surgical intervention if sx don't improve. Abdominal x-ray showing partial improvement, air and stool seen in colon. Visit type - Emergency Visit Emergency Visit: Yes ED Registration Date: 11/01/19 Care time: The patient presented to the Emergency Department on the above date and was hospitalized for further evaluation of their emergent condition. - New Patient This patient is new to me today: No - Critical Care Critical Care patient: No ATTENDING PHYSICIAN STATEMENT I saw and evaluated the patient. I reviewed the resident's note and discussed the case with the resident. I agree with the resident's findings and plan as documented. SUBJECTIVE: OBJECTIVE: ASSESSMENT AND PLAN:
[2019-11-03] MEDS ORDERED: ACETAMINOPHEN 1000 MG/100 ML VIAL (NON FORMULARY) IVPB PRN (17:22)
--- NOTE | 2019-11-03 18:08 | PN ---
Teaching Attending Note Name of Resident: Shirley Villalta ATTENDING PHYSICIAN STATEMENT I saw and evaluated the patient. I reviewed the resident's note and discussed the case with the resident. I agree with the resident's findings and plan as documented. SUBJECTIVE: Generally improving abdominal discomfort. NGT replaced this AM. OBJECTIVE: Tmax 99.5, Hemodynamically stable. NGT in situ. Last Vital Signs Temp Pulse Resp BP Pulse Ox 98.2 F 76 18 158/77 98 11/03/19 14:48 11/03/19 14:48 11/03/19 14:48 11/03/19 14:48 11/03/19 14:48 HEENT - Atraumatic, Normocephalic Heart - S1, S2, RRR Lungs - clear to auscultation Abdomen - Soft, mild generalized tenderness. Bowel Sounds normal. Extremities - no edema, no calf tenderness. Neuro - AAO x 3. Tone/Power normal. Laboratory Results - last 24 hr 11/01/19 11/03/19 11/03/19 20:55 06:40 06:40 WBC 12.9 H RBC 3.92 Hgb 11.9 Hct 35.9 MCV 91.7 MCH 30.3 MCHC 33.1 RDW 13.1 Plt Count 333 MPV 7.5 Sodium 142 Potassium 3.9 Chloride 109 H Carbon Dioxide 25 Anion Gap 9 BUN 10.2 Creatinine 0.5 L Est GFR (CKD-EPI)AfAm 119.38 Est GFR (CKD-EPI)NonAf 103.00 Random Glucose 84 Calcium 8.0 L Magnesium 1.9 Total Bilirubin 0.6 AST 20 ALT 25 Alkaline Phosphatase 75 Total Protein 7.0 Albumin 3.4 TSH 0.81 COVID-19 (WILLIAM) Not detected Current Medications Generic Name Dose Route Start Last Admin Trade Name Freq PRN Reason Stop Dose Admin Acetaminophen 1,000 mg 11/03/19 17:22 11/03/19 17:46 Ofirmev Injection - IVPB 11/04/19 17:22 1,000 mg Q6H PRN Administration HEADACHE Enoxaparin Sodium 40 mg 11/02/19 10:00 11/03/19 11:16 Lovenox - SQ 40 mg DAILY ELLEN Administration Sodium Chloride 1,000 mls @ 100 mls/hr 11/03/19 15:00 11/03/19 17:46 Normal Saline - IV 100 mls/hr ASDIR ELLEN Administration Levothyroxine Sodium 75 mcg 11/03/19 10:00 11/03/19 13:50 Synthroid Injection - IVPUSH 75 mcg DAILY ELLEN Administration Morphine Sulfate 4 mg 11/01/19 22:49 Morphine Sulfate IVPUSH Q4H PRN PAIN LEVEL 7 - 10 Ondansetron HCl 4 mg 11/01/19 22:50 11/02/19 20:22 Zofran Injection IVPUSH 4 mg Q4H PRN Administration NAUSEA AND/OR VOMITING Home Medications Medication Instructions Recorded Levothyroxine [Synthroid -] 125 mcg PO DAILY 10/24/16 Valsartan [Diovan] 40 mg PO DAILY 10/24/16 Ergocalciferol (Vitamin D2) 50,000 unit PO WEEKLY 11/02/19 [Vitamin D2] ASSESSMENT AND PLAN: 64 year old female with history of GERD, HTN, Hypothyroidism, DM 2, multiple intra-abdominal surgeries (s/p hernia repair, s/p JENIFER, s/p cholecystectomy, s/p appendectomy, s/p gastric sleeve), patent PFO, history of recurrent SBO, presents with abdominal pain and cramping. 1. Acute SBO - recurrent CT A/P - SBO Trial of conservative therapy - NGT decompression, NPO, IV fluids. Surgery following. 2. Hypothyroidism - continue Levothyroxine. 3. HTN - Valsartan held while patient NPO with NGT.. 4. DM 2 - A1c wnl, appears to be diet controlled. 5. patent PFO with L to R flow on recent echo 09/13 - no further Ix as per Cardio - for out-patient follow up. DVT Px - Lovenox SQ
[2019-11-04] MEDS: SODIUM CHLORIDE 1,000 ML IV SCH (05:13)
[2019-11-04 08:20] LABS: HEMATOCRIT 31.3 % (32.4-45.2); HEMOGLOBIN 10.4 GM/dL (10.7-15.3); MCH 30.8 pg (25.7-33.7); MCHC 33.3 g/dl (32.0-36.0); MEAN CELL VOLUME 92.4 fl (80-96); MEAN PLT VOLUME 7.7 fl (7.5-11.1); PLATELET COUNT 270 K/MM3 (134-434); RBC 3.39 M/mm3 (3.60-5.2); WHITE BLOOD COUNT 8.8 K/mm3 (4.0-10.0)
[2019-11-04 08:30] LABS: ALBUMIN 2.8 g/dl (3.4-5.0); BILIRUBIN,TOTAL 0.7 mg/dL (0.2-1); BLOOD UREA NITROGEN 9.6 mg/dL (7-18); CALCIUM 8.3 mg/dL (8.5-10.1); CREATININE 0.3 mg/dL (0.55-1.3); MAGNESIUM 1.9 mg/dL (1.8-2.4); PHOSPHOROUS 2.5 mg/dL (2.5-4.9); POTASSIUM 3.5 mmol/L (3.5-5.1); TOT PROT 6.1 g/dl (6.4-8.2)
[2019-11-04] MEDS: LEVOTHYROXINE SODIUM 100 MCG VIAL IVPUSH SCH (09:49)
[2019-11-04] MEDS: ENOXAPARIN NA (PORCINE) 40 MG/0.4 ML DISP.SYRIN SQ SCH (09:49)
--- NOTE | 2019-11-04 10:43 | PN ---
Progress Note (short form) - Note Progress Note: 64yo F h/o SBO, pt seen and examined at bedside. Pt states that she feels much better today, denies fever, chill, n/v. Pt had NGT removed yesterday. Pt states she has been passing flatus. Last Vital Signs Temp Pulse Resp BP Pulse Ox 98.3 F 71 18 125/66 98 11/04/19 09:55 11/04/19 09:55 11/04/19 09:55 11/04/19 09:55 11/04/19 09:55 CBC, BMP 11/04/19 06:25 11/04/19 06:25 PE: Gen: A&O X3 Resp: breathing comfortably Abd; soft, nontender, nondistended <Iglesia Harley - Last Filed: 11/04/19 10:35> - Note Progress Note: Attending Surgeon: I personally saw and examined the patient. My examination reveals a patient with an SBO. I discussed the case with the surgical PA and agree with their findings and plan of care with any exceptions as noted. ~ Gokul Rodriguez MD, FACS <Gokul Rodriguez - Last Filed: 11/17/19 08:18> Problem List - Problems (1) SBO (small bowel obstruction) Assessment/Plan: Plan -abd x-ray is concerning for worsening SBO, but cllinically pt looks good, will try clears and see if pt tolerates -OOB/ambulate -dvt ppx Pt discussed with Dr. Rodriguez who agrees. Code(s): K56.69 - OTHER INTESTINAL OBSTRUCTION * DO NOT USE * <Iglesia Harley - Last Filed: 11/04/19 10:35>
--- NOTE | 2019-11-04 13:01 | PN ---
Progress Note (short form) - Note Progress Note: cc: abd pain s: abd pain improving. no chest pain, palps, dizziness, dyspnea Current Medications Generic Name Dose Route Start Last Admin Trade Name Eleni PRN Reason Stop Dose Admin Acetaminophen 1,000 mg 11/03/19 17:22 11/03/19 17:46 Ofirmev Injection - IVPB 11/04/19 17:22 1,000 mg Q6H PRN Administration HEADACHE Enoxaparin Sodium 40 mg 11/02/19 10:00 11/04/19 09:49 Lovenox - SQ 40 mg DAILY ELLEN Administration Sodium Chloride 1,000 mls @ 100 mls/hr 11/03/19 15:00 11/04/19 05:13 Normal Saline - IV 100 mls/hr ASDIR ELLEN Administration Levothyroxine Sodium 75 mcg 11/03/19 10:00 11/04/19 09:49 Synthroid Injection - IVPUSH 75 mcg DAILY ELLEN Administration Morphine Sulfate 4 mg 11/01/19 22:49 Morphine Sulfate IVPUSH Q4H PRN PAIN LEVEL 7 - 10 Ondansetron HCl 4 mg 11/01/19 22:50 11/02/19 20:22 Zofran Injection IVPUSH 4 mg Q4H PRN Administration NAUSEA AND/OR VOMITING Vital Signs Period Temp Pulse Resp BP Sys/Monte Pulse Ox Last 24 Hr 98.2 F-99.0 F 61-76 18-18 125-158/63-89 97-98 Constitutional: Yes: Well Nourished, No Distress, Calm Eyes: Yes: Conjunctiva Clear, EOM Intact HENT: Yes: Atraumatic, Normocephalic Neck: Yes: Supple, Trachea Midline Respiratory: Yes: Regular, CTA Bilaterally Gastrointestinal: Yes: Soft. No: Tenderness Cardiovascular: Yes: Regular Rate and Rhythm JVD: No Heart Sounds: Yes: S1, S2 Murmur: Yes: Systolic Murmur (II/ RUSB) Musculoskeletal: No: Back Pain Extremities: No: Cold Edema: No Integumentary: No: Jaundice Neurological: Yes: Alert, Oriented Psychiatric: No: Agitated Assessment/Plan echo 08/2019 nl LV/RV function, small PFO with L to R flow, tr TR, tr [place] EKG: sinus, nl intervals, no ischemic changes preop, abd pain, SBO - manage per surgery - recent echo unremarkable - she is at acceptable risk for abdominal surgery if needed, no further testing prior to procedure murmur - recent office echo unremarkable, no further testing here hypothyroidism - manage per primary HTN - holding home meds while NPO - monitor BP for now PFO - outpatient follow up
--- NOTE | 2019-11-04 14:55 | PN ---
Teaching Attending Note Name of Resident: Shirley Villalta ATTENDING PHYSICIAN STATEMENT I saw and evaluated the patient. I reviewed the resident's note and discussed the case with the resident. I agree with the resident's findings and plan as documented. SUBJECTIVE: Much improved abdominal discomfort - multiple BMs overnight and this AM. No nausea/vomiting/fever/chills. NGT out yesterday. OBJECTIVE: Afebrile, Hemodynamically stable. Last Vital Signs Temp Pulse Resp BP Pulse Ox 98.3 F 71 18 125/66 98 11/04/19 09:55 11/04/19 09:55 11/04/19 09:55 11/04/19 09:55 11/04/19 09:55 Heart - S1, S2, RRR, SM Lungs - clear to auscultation Abdomen - Soft, non-tender. Bowel Sounds normal. Extremities - no edema, no calf tenderness. Neuro - AAO x 3. Tone/Power normal. Laboratory Results - last 24 hr 11/04/19 11/04/19 11/04/19 06:00 06:25 06:25 WBC 8.8 RBC 3.39 L Hgb 10.4 L Hct 31.3 L MCV 92.4 MCH 30.8 MCHC 33.3 RDW 13.0 Plt Count 270 MPV 7.7 Sodium 144 Potassium 3.5 Chloride 110 H Carbon Dioxide 23 Anion Gap 11 BUN 9.6 Creatinine 0.3 L Est GFR (CKD-EPI)AfAm 141.23 Est GFR (CKD-EPI)NonAf 121.85 Random Glucose 55 L Hemoglobin A1c % 5.3 Calcium 8.3 L Phosphorus 2.5 Magnesium 1.9 Total Bilirubin 0.7 AST 18 ALT 22 Alkaline Phosphatase 70 Total Protein 6.1 L Albumin 2.8 L Current Medications Generic Name Dose Route Start Last Admin Trade Name Freq PRN Reason Stop Dose Admin Acetaminophen 1,000 mg 11/03/19 17:22 11/03/19 17:46 Ofirmev Injection - IVPB 11/04/19 17:22 1,000 mg Q6H PRN Administration HEADACHE Enoxaparin Sodium 40 mg 11/02/19 10:00 11/04/19 09:49 Lovenox - SQ 40 mg DAILY ELLEN Administration Sodium Chloride 1,000 mls @ 100 mls/hr 11/03/19 15:00 11/04/19 05:13 Normal Saline - IV 100 mls/hr ASDIR ELLEN Administration Levothyroxine Sodium 75 mcg 11/03/19 10:00 11/04/19 09:49 Synthroid Injection - IVPUSH 75 mcg DAILY ELLEN Administration Morphine Sulfate 4 mg 11/01/19 22:49 Morphine Sulfate IVPUSH Q4H PRN PAIN LEVEL 7 - 10 Ondansetron HCl 4 mg 11/01/19 22:50 11/02/19 20:22 Zofran Injection IVPUSH 4 mg Q4H PRN Administration NAUSEA AND/OR VOMITING Home Medications Medication Instructions Recorded Levothyroxine [Synthroid -] 125 mcg PO DAILY 10/24/16 Valsartan [Diovan] 40 mg PO DAILY 10/24/16 Ergocalciferol (Vitamin D2) 50,000 unit PO WEEKLY 11/02/19 [Vitamin D2] ASSESSMENT AND PLAN: 64 year old female with history of GERD, HTN, Hypothyroidism, DM 2, multiple intra-abdominal surgeries (s/p hernia repair, s/p JENIFER, s/p cholecystectomy, s/p appendectomy, s/p gastric sleeve), patent PFO, history of recurrent SBO, presents with abdominal pain and cramping. 1. Acute SBO - recurrent, resolving CT A/P - SBO Passed BMs, pain/distension much improved. Leukocytosis resolved. Advance diet to clears as per Surgery. Continue IV fluids. Surgery following. 2. Hypothyroidism - continue Levothyroxine. 3. HTN - Valsartan held for now due to borderline BP. 4. DM 2 - A1c wnl, appears to be diet controlled. 5. Patent PFO with L to R flow on recent echo 09/13 - no further Ix as per Cardio - for out-patient follow up. DVT Px - Lovenox SQ
--- NOTE | 2019-11-04 16:37 | PN ---
Physical Exam: SUBJECTIVE: Patient seen and examined. States much improved symptoms. BM overnight, and multiple this AM. Denies fever/chills/n/v. NGT out this AM. OBJECTIVE: Vital Signs Period Temp Pulse Resp BP Sys/Monte Pulse Ox Last 24 Hr 98.3 F-99.0 F 59-74 18-18 125-148/60-89 97-98 GENERAL: The patient is awake, alert, and fully oriented, in no acute distress. HEAD: Normal with no signs of trauma. EYES: PERRL, extraocular movements intact, sclera anicteric, conjunctiva clear. No ptosis. ENT: Ears normal, nares patent, oropharynx clear without exudates, moist mucous membranes. NECK: Trachea midline, full range of motion, supple. LUNGS: Breath sounds equal, clear to auscultation bilaterally, no wheezes, no crackles, no accessory muscle use. HEART: Regular rate and rhythm, S1, S2 without murmur, rub or gallop. ABDOMEN: Soft, nontender, nondistended, normoactive bowel sounds, no guarding, no rebound, no hepatosplenomegaly, no masses. EXTREMITIES: 2+ pulses, warm, well-perfused, no edema. NEUROLOGICAL: Cranial nerves II through XII grossly intact. Normal speech, gait not observed. PSYCH: Normal mood, normal affect. SKIN: Warm, dry, normal turgor, no rashes or lesions noted Laboratory Results - last 24 hr 11/04/19 11/04/19 11/04/19 06:00 06:25 06:25 WBC 8.8 RBC 3.39 L Hgb 10.4 L Hct 31.3 L MCV 92.4 MCH 30.8 MCHC 33.3 RDW 13.0 Plt Count 270 MPV 7.7 Sodium 144 Potassium 3.5 Chloride 110 H Carbon Dioxide 23 Anion Gap 11 BUN 9.6 Creatinine 0.3 L Est GFR (CKD-EPI)AfAm 141.23 Est GFR (CKD-EPI)NonAf 121.85 Random Glucose 55 L Hemoglobin A1c % 5.3 Calcium 8.3 L Phosphorus 2.5 Magnesium 1.9 Total Bilirubin 0.7 AST 18 ALT 22 Alkaline Phosphatase 70 Total Protein 6.1 L Albumin 2.8 L Active Medications Generic Name Dose Route Start Last Admin Trade Name Freq PRN Reason Stop Dose Admin Acetaminophen 1,000 mg 11/03/19 17:22 11/03/19 17:46 Ofirmev Injection - IVPB 11/04/19 17:22 1,000 mg Q6H PRN Administration HEADACHE Enoxaparin Sodium 40 mg 11/02/19 10:00 11/04/19 09:49 Lovenox - SQ 40 mg DAILY ELLEN Administration Levothyroxine Sodium 75 mcg 11/03/19 10:00 11/04/19 09:49 Synthroid Injection - IVPUSH 75 mcg DAILY ELLEN Administration Morphine Sulfate 4 mg 11/01/19 22:49 Morphine Sulfate IVPUSH Q4H PRN PAIN LEVEL 7 - 10 Ondansetron HCl 4 mg 11/01/19 22:50 11/02/19 20:22 Zofran Injection IVPUSH 4 mg Q4H PRN Administration NAUSEA AND/OR VOMITING ASSESSMENT/PLAN: Pt is a 64 year old female with PMHx of GERD, HTN, hypothyroid, DM2, multiple intraabdominal surgeries (hernia repair, JENIFER, cholecystectomy, appendectomy, and gastric sleeve), and episodes of SBO in the past, presenting with abdominal pain admitted for SBO. #Recurrent SBO -multiple episodes of SBO in the past -IVF -advanced to clear liquids -NGT out -Morphine 4mg prn for pain -Surgery consulted --> continue management, serial abdominal x-rays, possible intervention if no improvement in sx -Advanced diet to clears as per surgery #Hx of hypothyroid -Continue synthroid #Hx of HTN -Held home telmisartan for now -monitor BP #Hx of DM2 -A1c 5.3 -not on meds at home; diet controlled PPx Lovenox FEN Clear diet Monitor electrolytes NS 100cc/hr Visit type - Emergency Visit Emergency Visit: Yes ED Registration Date: 11/01/19 Care time: The patient presented to the Emergency Department on the above date and was hospitalized for further evaluation of their emergent condition. - New Patient This patient is new to me today: No - Critical Care Critical Care patient: No ATTENDING PHYSICIAN STATEMENT I saw and evaluated the patient. I reviewed the resident's note and discussed the case with the resident. I agree with the resident's findings and plan as documented. SUBJECTIVE: OBJECTIVE: ASSESSMENT AND PLAN:
[2019-11-05 08:12] LABS: BASO % 0.5 % (0-2.0); EOS % 1.7 % (0-4.5); HEMATOCRIT 32.2 % (32.4-45.2); HEMOGLOBIN 10.8 GM/dL (10.7-15.3); LYMPH % 30.5 % (8-40); MCH 30.4 pg (25.7-33.7); MCHC 33.4 g/dl (32.0-36.0); MEAN PLT VOLUME 7.4 fl (7.5-11.1); MONO % 6.2 % (3.8-10.2); NEUT % 61.1 % (42.8-82.8); PLATELET COUNT 277 K/MM3 (134-434); RBC 3.54 M/mm3 (3.60-5.2); WHITE BLOOD COUNT 7.5 K/mm3 (4.0-10.0)
[2019-11-05 08:17] LABS: ALBUMIN 2.9 g/dl (3.4-5.0); BILIRUBIN,TOTAL 0.5 mg/dL (0.2-1); BLOOD UREA NITROGEN 5.3 mg/dL (7-18); CALCIUM 8.5 mg/dL (8.5-10.1); CREATININE 0.4 mg/dL (0.55-1.3); PHOSPHOROUS 2.4 mg/dL (2.5-4.9); POTASSIUM 3.5 mmol/L (3.5-5.1); TOT PROT 6.2 g/dl (6.4-8.2)
[2019-11-05] MEDS ORDERED: POTASSIUM PHOSPHATE 15 MM in SODIUM CHLORIDE 250 ML IVPB ONE (09:26)
--- NOTE | 2019-11-05 10:19 | PN ---
Progress Note (short form) - Note Progress Note: Surgery: Pt had BM and is tolerating a clear liquid diet. Vital Signs Period Temp Pulse Resp BP Sys/Monte Pulse Ox Last 24 Hr 97.9 F-98.4 F 57-64 17-18 126-142/55-71 94-99 GEN: A&0x3, NAD ABD: soft, non-distended, non-tender CBC, BMP 11/05/19 06:45 11/05/19 06:45 A/P: 64 yo female with resolving SBO, h/o of multiple abdominal surgeries Adv diet to regular for lunch No further surgical issues, please reconsult as needed D/w Dr. Rodriguez <Anita Randall - Last Filed: 11/05/19 10:20> - Note Progress Note: Attending Surgeon: I personally saw and examined the patient. My examination reveals a patient with a SBO. I discussed the case with the surgical PA and agree with their findings and plan of care with any exceptions as noted. ~ Gokul Rodriguez MD, FACS <Gokul Rodriguez - Last Filed: 11/17/19 08:15>
--- NOTE | 2019-11-05 12:02 | PN ---
Progress Note (short form) - Note Progress Note: cc: abd pain s: abd pain improving. no chest pain, palps, dizziness, dyspnea Current Medications Generic Name Dose Route Start Last Admin Trade Name Eleni PRN Reason Stop Dose Admin Enoxaparin Sodium 40 mg 11/02/19 10:00 11/04/19 09:49 Lovenox - SQ 40 mg DAILY ELLEN Administration Potassium Phosphate 15 mm/ 255 mls @ 62.5 mls/hr 11/05/19 09:26 Sodium Chloride IVPB 11/05/19 13:30 ONCE ONE Levothyroxine Sodium 75 mcg 11/03/19 10:00 11/04/19 09:49 Synthroid Injection - IVPUSH 75 mcg DAILY ELLEN Administration Ondansetron HCl 4 mg 11/01/19 22:50 11/02/19 20:22 Zofran Injection IVPUSH 4 mg Q4H PRN Administration NAUSEA AND/OR VOMITING Vital Signs Period Temp Pulse Resp BP Sys/Monte Pulse Ox Last 24 Hr 97.9 F-98.4 F 57-64 17-18 126-142/55-71 94-99 Constitutional: Yes: Well Nourished, No Distress, Calm Eyes: Yes: Conjunctiva Clear, EOM Intact HENT: Yes: Atraumatic, Normocephalic Neck: Yes: Supple, Trachea Midline Respiratory: Yes: Regular, CTA Bilaterally Gastrointestinal: Yes: Soft. No: Tenderness Cardiovascular: Yes: Regular Rate and Rhythm JVD: No Heart Sounds: Yes: S1, S2 Murmur: Yes: Systolic Murmur (II/ RUSB) Musculoskeletal: No: Back Pain Extremities: No: Cold Edema: No Integumentary: No: Jaundice Neurological: Yes: Alert, Oriented Psychiatric: No: Agitated CBC, BMP 11/05/19 06:45 11/05/19 06:45 Assessment/Plan echo 08/2019 nl LV/RV function, small PFO with L to R flow, tr TR, tr [place] EKG: sinus, nl intervals, no ischemic changes preop, abd pain, SBO - manage per surgery - recent echo unremarkable - she is at acceptable risk for abdominal surgery if needed, no further testing prior to procedure murmur - recent office echo unremarkable, no further testing here hypothyroidism - manage per primary HTN - holding home meds while NPO - monitor BP for now PFO - outpatient follow up
[2019-11-05] MEDS: ENOXAPARIN NA (PORCINE) 40 MG/0.4 ML DISP.SYRIN SQ SCH (12:26)
[2019-11-05] MEDS: LEVOTHYROXINE SODIUM 100 MCG VIAL IVPUSH SCH (12:26)
[2019-11-05 13:41] VITALS: BP 123/57; PULSE 65; TEMP 98.4
--- NOTE | 2019-11-05 15:43 | PN ---
Teaching Attending Note Name of Resident: Shirley Villalta ATTENDING PHYSICIAN STATEMENT I saw and evaluated the patient. I reviewed the resident's note and discussed the case with the resident. I agree with the resident's findings and plan as documented. SUBJECTIVE: Improved abdominal discomfort - BMs +. No nausea/vomiting/fever/chills. OBJECTIVE: Afebrile, Hemodynamically stable. Last Vital Signs Temp Pulse Resp BP Pulse Ox 98.4 F 65 20 123/57 L 99 11/05/19 13:38 11/05/19 13:38 11/05/19 13:38 11/05/19 13:38 11/05/19 09:00 Heart - S1, S2, RRR, SM Lungs - clear to auscultation Abdomen - Soft, non-tender. Bowel Sounds normal. Extremities - no edema, no calf tenderness. Neuro - AAO x 3. Tone/Power normal. Laboratory Results - last 24 hr 11/05/19 11/05/19 06:45 06:45 WBC 7.5 RBC 3.54 L Hgb 10.8 Hct 32.2 L MCV 91.0 MCH 30.4 MCHC 33.4 RDW 13.0 Plt Count 277 MPV 7.4 L Absolute Neuts (auto) 4.6 Neutrophils % 61.1 D Lymphocytes % 30.5 D Monocytes % 6.2 Eosinophils % 1.7 D Basophils % 0.5 Nucleated RBC % 0 Sodium 144 Potassium 3.5 Chloride 111 H Carbon Dioxide 28 Anion Gap 5 L BUN 5.3 L Creatinine 0.4 L Est GFR (CKD-EPI)AfAm 128.47 Est GFR (CKD-EPI)NonAf 110.85 Random Glucose 81 Calcium 8.5 Phosphorus 2.4 L Magnesium 2.0 Total Bilirubin 0.5 AST 20 ALT 23 Alkaline Phosphatase 67 Total Protein 6.2 L Albumin 2.9 L Current Medications Generic Name Dose Route Start Last Admin Trade Name Freq PRN Reason Stop Dose Admin Enoxaparin Sodium 40 mg 11/02/19 10:00 11/05/19 12:26 Lovenox - SQ 40 mg DAILY ELLEN Administration Levothyroxine Sodium 75 mcg 11/03/19 10:00 11/05/19 12:26 Synthroid Injection - IVPUSH 75 mcg DAILY ELLEN Administration Ondansetron HCl 4 mg 11/01/19 22:50 11/02/19 20:22 Zofran Injection IVPUSH 4 mg Q4H PRN Administration NAUSEA AND/OR VOMITING Home Medications Medication Instructions Recorded Levothyroxine [Synthroid -] 125 mcg PO DAILY 10/24/16 Valsartan [Diovan] 40 mg PO DAILY 10/24/16 Ergocalciferol (Vitamin D2) 50,000 unit PO WEEKLY 11/02/19 [Vitamin D2] ASSESSMENT AND PLAN: 64 year old female with history of GERD, HTN, Hypothyroidism, DM 2, multiple intra-abdominal surgeries (s/p hernia repair, s/p JENIFER, s/p cholecystectomy, s/p appendectomy, s/p gastric sleeve), patent PFO, history of recurrent SBO, presents with abdominal pain and cramping. 1. Acute SBO - recurrent, resolved CT A/P - SBO Passed BMs, pain/distension much improved. Leukocytosis resolved. Surgery advanced diet to regular - if tolerates, can be discharged home. 2. Hypothyroidism - continue Levothyroxine. 3. HTN - Valsartan to resume on discharge 4. DM 2 - A1c wnl, appears to be diet controlled. 5. Patent PFO with L to R flow on recent echo 09/13 - no further Ix as per Cardio - for out-patient follow up. DVT Px - Lovenox SQ Medically/Surgically clear for discharge once tolerating regular diet with no abdominal discomfort.
--- NOTE | 2019-11-05 16:22 | DS ---
Physical Exam: SUBJECTIVE: Patient seen and examined OBJECTIVE: Vital Signs Period Temp Pulse Resp BP Sys/Monte Pulse Ox Last 24 Hr 97.9 F-98.4 F 57-65 17-20 123-142/55-71 94-99 PHYSICAL EXAM GENERAL: The patient is awake, alert, and fully oriented, in no acute distress. HEAD: Normal with no signs of trauma. EYES: PERRL, extraocular movements intact, sclera anicteric, conjunctiva clear. ENT: Ears normal, nares patent, oropharynx clear without exudates, moist mucous membranes. NECK: Trachea midline, full range of motion, supple. LUNGS: Breath sounds equal, clear to auscultation bilaterally, no wheezes, no crackles, no accessory muscle use. HEART: Regular rate and rhythm, S1, S2 without murmur, rub or gallop. ABDOMEN: Soft, nontender, nondistended, normoactive bowel sounds, no guarding, no rebound, no hepatosplenomegaly, no masses. EXTREMITIES: 2+ pulses, warm, well-perfused, no edema. NEUROLOGICAL: Cranial nerves II through XII grossly intact. Normal speech, gait not observed. PSYCH: Normal mood, normal affect. SKIN: Warm, dry, normal turgor, no rashes or lesions noted. LABS Laboratory Results - last 24 hr 11/05/19 11/05/19 06:45 06:45 WBC 7.5 RBC 3.54 L Hgb 10.8 Hct 32.2 L MCV 91.0 MCH 30.4 MCHC 33.4 RDW 13.0 Plt Count 277 MPV 7.4 L Absolute Neuts (auto) 4.6 Neutrophils % 61.1 D Lymphocytes % 30.5 D Monocytes % 6.2 Eosinophils % 1.7 D Basophils % 0.5 Nucleated RBC % 0 Sodium 144 Potassium 3.5 Chloride 111 H Carbon Dioxide 28 Anion Gap 5 L BUN 5.3 L Creatinine 0.4 L Est GFR (CKD-EPI)AfAm 128.47 Est GFR (CKD-EPI)NonAf 110.85 Random Glucose 81 Calcium 8.5 Phosphorus 2.4 L Magnesium 2.0 Total Bilirubin 0.5 AST 20 ALT 23 Alkaline Phosphatase 67 Total Protein 6.2 L Albumin 2.9 L HOSPITAL COURSE: Date of Admission:11/01/19 Pt is a 64 year old female with PMHx GERD, HTN, Hypothyroidism, DM 2, multiple intra-abdominal surgeries (s/p hernia repair, s/p JENIFER, s/p cholecystectomy, s/p appendectomy, s/p gastric sleeve), patent PFO, history of recurrent SBO, presents with abdominal pain and cramping admitted for SBO. Pt had serial imaging which showed SBO. Pt was evaluated by gen surg, and was on IVF/NG tube/NPO and had significant improvement in symptoms. Had bowel movement and improvement in abdominal pain. Advanced diet to regular and tolerated on discharge. Pt continued on levothyroxine for hypothyroidism. Resumed valsartan on discharge. A1c normal, not on any diabetes medications, appears to be diet controlled. Had recent echo in 09/13, has patent PFO but no further workup. Pt to follow up with PCP, surgery and cardio outpatient. Date of Discharge: 11/05/19 Minutes to complete discharge: 36 Discharge Summary Problems reviewed: Yes Reason For Visit: SMALL BOWEL OBSTRUCTION Current Active Problems SBO (small bowel obstruction) (Acute) Condition: Stable - Instructions Diet, Activity, Other Instructions: You came to the hospital for abdominal pain, and were found to have obstruction in your intestines (similar to what you had in the past). You were given IV fluids, had tube placed into your stomach from your nose, and were not eating to help your bowel rest and regain its function. You eventually were able to eat, passed bowel movement and had improvement in your symptoms. Please continue your home medications as prescribed. Please follow up with your primary care physician, Dr. Calvert, within 1 week for your overall health management. Please follow up with your general surgeon, Dr. Rodriguez, within 7-10 days for follow up of your resolving obstruction. Please follow up with your carbon setter, Dr. Wheat, within 2 weeks. If you have any new, worsening, or changing symptoms please call 911 or return to the ED. Referrals: Gokul Rodriguez MD [Staff Physician] - Angel Luis Wheat MD [Staff Physician] - Jelena Calvert MD [Primary Care Provider] - Disposition: HOME - Home Medications Comprehensive Discharge Medication List: Ambulatory Orders Levothyroxine [Synthroid -] 125 mcg PO DAILY 10/24/16 Valsartan [Diovan] 40 mg PO DAILY 10/24/16 Ergocalciferol (Vitamin D2) [Vitamin D2] 50,000 unit PO WEEKLY 11/02/19 This patient is new to me today: Yes Date on this admission: 11/15/19 Emergency Visit: No Critical Care patient: No - Discharge Referral Referred to [facility] Med P.C.: No ATTENDING PHYSICIAN STATEMENT I saw and evaluated the patient. I reviewed the resident's note and discussed the case with the resident. I agree with the resident's findings and plan as documented. SUBJECTIVE: OBJECTIVE: ASSESSMENT AND PLAN:
== END 2019-11-05 18:21 | disposition home or self-care (01) | DRG 247 ==
LOC: JER 14:12 → JERBED 20:31 → J7W 11-02 19:55
PROVIDERS: ADMIT Hospitalist
PROC: 0D9670Z Drainage of Stomach with Drainage Device, Via Natural or Artificial Opening (ICD-10-PCS; principal; 2019-11-01)
DX: K56.50 Intestinal adhesions [bands], unspecified as to partial versus complete obstruction (principal); Q21.1 Atrial septal defect; E55.9 Vitamin D deficiency, unspecified; E11.9 Type 2 diabetes mellitus without complications; D72.829 Elevated white blood cell count, unspecified; E03.9 Hypothyroidism, unspecified; K21.9 Gastro-esophageal reflux disease without esophagitis; I10 Essential (primary) hypertension; R01.1 Cardiac murmur, unspecified; Z96.653 Presence of artificial knee joint, bilateral; Z98.84 Bariatric surgery status
CPT/HCPCS: 36415; 71045-TC-FY; 74019-TC-FY; 74177-TC; 80053; 82550; 83036; 83690; 83735; 84100; 84443; 84484; 85025; 85027; 93005; 93010; 99285-25; J0131; U0003

== ENCOUNTER 2020-09-01 02:03 | Inpatient (IN) | payer OTHER ==
[2020-09-01] MEDS ORDERED: ONDANSETRON 4 MG/2 ML VIAL IVPUSH ONE (03:03)
[2020-09-01] MEDS ORDERED: ACETAMINOPHEN 1000 MG/100 ML VIAL (NON FORMULARY) IVPB ONE (03:03)
[2020-09-01 03:06] LABS: HEMATOCRIT 35.4 % (32.4-45.2); HEMOGLOBIN 11.9 GM/dL (10.7-15.3); MCH 30.1 pg (25.7-33.7); MCHC 33.6 g/dl (32.0-36.0); MEAN CELL VOLUME 89.6 fl (80-96); PLATELET COUNT 319 10^3/uL (134-434); RBC 3.95 M/mm3 (3.60-5.2); RDW 13.6 % (11.6-15.6); WHITE BLOOD COUNT 10.1 K/mm3 (4.0-10.0)
[2020-09-01] MEDS ORDERED: ACETAMINOPHEN INJECTION 100 ML IVPB ONE ×2 (03:08→11:20)
[2020-09-01] MEDS ORDERED: ONDANSETRON 4 MG/2 ML VIAL ONE (03:08)
[2020-09-01 03:27] LABS: CHLORIDE 107 mmol/L (98-107); SODIUM 139 mmol/L (136-145)
[2020-09-01 03:29] LABS: ALBUMIN 3.7 g/dl (3.4-5.0); ANION GAP 7 MMOL/L (8-16); BLOOD UREA NITROGEN 19.4 mg/dL (7-18); CALCIUM 9.5 mg/dL (8.5-10.1); CO2 25 mmol/L (21-32); LIPASE 101 U/L (73-393)
[2020-09-01 03:30] LABS: GLUCOSE,RANDOM 112 mg/dL (74-106)
[2020-09-01 03:32] LABS: SGOT/AST 16 U/L (15-37); SGPT/ALT 24 U/L (13-61)
[2020-09-01 03:34] LABS: BILIRUBIN,TOTAL 0.4 mg/dL (0.2-1); TOT PROT 7.7 g/dl (6.4-8.2)
[2020-09-01 03:35] LABS: ALK PHOS 74 U/L (45-117)
[2020-09-01 03:43] LABS: CREATININE 0.4 mg/dL (0.55-1.3)
[2020-09-01 04:05] LABS: INR 1.08 (0.83-1.09); PROTHROMBIN TIME (PATIENT) 13.3 SEC (9.7-13.0)
[2020-09-01] MEDS ORDERED: LACTATED RINGERS SOLUTION 1,000 ML/1,000 ML INFUS.BAG IV SCH (07:30)
[2020-09-01] MEDS ORDERED: ONDANSETRON 4 MG/2 ML VIAL IVPUSH PRN (09:12)
[2020-09-01] MEDS ORDERED: ACETAMINOPHEN 1000 MG/100 ML VIAL (NON FORMULARY) IVPB PRN (09:13)
[2020-09-01] MEDS ORDERED: LACTATED RINGERS SOLUTION 1,000 ML IV SCH (09:15)
[2020-09-01] MEDS ORDERED: ENOXAPARIN NA (PORCINE) 40 MG/0.4 ML DISP.SYRIN SQ ONE (11:21)
[2020-09-01] MEDS: ENOXAPARIN NA (PORCINE) 40 MG/0.4 ML DISP.SYRIN SQ SCH (11:25)
[2020-09-01] MEDS: LACTATED RINGERS SOLUTION 1,000 ML IV SCH (11:37)
[2020-09-01 13:14] VITALS: BMI 32.0
[2020-09-01] MEDS: LEVOTHYROXINE NA 125 MCG TABLET (FP) PO SCH (13:35)
[2020-09-01] MEDS: LOSARTAN POTASSIUM 50 MG TABLET PO SCH (13:35)
[2020-09-02] MEDS: LACTATED RINGERS SOLUTION 1,000 ML IV SCH (05:15)
[2020-09-02] MEDS: LEVOTHYROXINE NA 125 MCG TABLET (FP) PO SCH (06:44)
[2020-09-02 09:27] LABS: BASO % 0.3 % (0-2.0); EOS % 1.1 % (0-4.5); HEMATOCRIT 37.6 % (32.4-45.2); HEMOGLOBIN 12.5 GM/dL (10.7-15.3); LYMPH % 30.3 % (8-40); MCHC 33.1 g/dl (32.0-36.0); MEAN CELL VOLUME 90.7 fl (80-96); MEAN PLT VOLUME 7.5 fl (7.5-11.1); MONO % 4.3 % (3.8-10.2); PLATELET COUNT 338 10^3/uL (134-434); RBC 4.15 M/mm3 (3.60-5.2); RDW 13.3 % (11.6-15.6); WHITE BLOOD COUNT 7.4 K/mm3 (4.0-10.0)
[2020-09-02] MEDS ORDERED: LEVOTHYROXINE NA 100 MCG TABLET (FP) PO SCH (10:00)
[2020-09-02 10:14] LABS: ALBUMIN 3.6 g/dl (3.4-5.0); CALCIUM 9.2 mg/dL (8.5-10.1); MAGNESIUM 2.1 mg/dL (1.8-2.4)
[2020-09-02 10:15] LABS: BLOOD UREA NITROGEN 9.1 mg/dL (7-18)
[2020-09-02 10:17] LABS: CREATININE 0.4 mg/dL (0.55-1.3); PHOSPHOROUS 3.8 mg/dL (2.5-4.9)
[2020-09-02 10:18] LABS: BILIRUBIN,TOTAL 0.7 mg/dL (0.2-1); TOT PROT 7.4 g/dl (6.4-8.2)
[2020-09-02] MEDS: LOSARTAN POTASSIUM 50 MG TABLET PO SCH (10:58)
[2020-09-02] MEDS: ENOXAPARIN NA (PORCINE) 40 MG/0.4 ML DISP.SYRIN SQ SCH (10:58)
[2020-09-03] MEDS: LEVOTHYROXINE NA 125 MCG TABLET (FP) PO SCH (06:53)
[2020-09-03 09:05] VITALS: BP 119/60; PULSE 80; TEMP 98.5
[2020-09-03] MEDS: LOSARTAN POTASSIUM 50 MG TABLET PO SCH (09:05)
[2020-09-03] MEDS: ENOXAPARIN NA (PORCINE) 40 MG/0.4 ML DISP.SYRIN SQ SCH (09:05)
[2020-09-03] MEDS ORDERED: ACETAMINOPHEN 325 MG TABLET (FP) PO ONE (09:35)
== END 2020-09-03 11:34 | disposition home or self-care (01) | DRG 247 ==
LOC: JER 02:03 → JERBED 07:20 → J6S 12:06
PROVIDERS: ATTEND Internal Medicine
DX: K56.50 Intestinal adhesions [bands], unspecified as to partial versus complete obstruction (principal); E03.9 Hypothyroidism, unspecified; E55.9 Vitamin D deficiency, unspecified; K21.9 Gastro-esophageal reflux disease without esophagitis; I10 Essential (primary) hypertension; E66.9 Obesity, unspecified; Z68.32 Body mass index [BMI] 32.0-32.9, adult; Z96.643 Presence of artificial hip joint, bilateral; E78.5 Hyperlipidemia, unspecified
CPT/HCPCS: 36415; 74019-TC-FY; 74177-TC; 80053; 83605; 83690; 83735; 84100; 84484; 85025; 85027; 85610; 93005; 93010; 99285-25; C9803; J0131; U0003; U0005